=== PATIENT | female | born 1975 | race American Indian/Alaskan Native ===

== ENCOUNTER 2016-11-29 08:31 | Outpatient (CLI) | payer BC ==
--- NOTE | 2016-11-29 09:22 | Mammography Report ---
Bilateral mammogram: Compared to 10/30/15. CAD study utilized. Findings: Predominance adipose tissue bilaterally. No mass or microcalcification. Benign axillary nodes. Impression: Benign findings. Annual followup recommended. BI-RADS CATEGORY: 2 = Benign ACR BI-RADS MAMMOGRAPHIC CODES: 0 = Needs additional imaging evaluation; 1 = Negative; 2 = Benign; 3 = Probably benign; 4 = Suspicious; 5 = Malignant; 6 = Known biopsy-proven malignancy COMMENT: 1. Dense breast tissue, i.e., adenosis, fibrocystic changes, etc., may obscure an underlying neoplasm. 2. Approximately 10% of cancers are not detected with mammography. 3. A negative mammography report should not delay biopsy if a clinically suspicious mass is present. COMMENT: Patient follow-up letters are generated in [employer].
== END 2016-11-29 08:32 | disposition home or self-care (01) ==
LOC: MAMMO 08:31
PROVIDERS: ATTEND Family Medicine
DX: Z12.31 Encounter for screening mammogram for malignant neoplasm of breast (principal)
CPT/HCPCS: 77067; G0202

== ENCOUNTER 2016-12-20 08:34 | Outpatient (CLI) | payer BC ==
[2016-12-20 07:48] LABS: Eosinophils % (Auto) 0.8 % (0.0-4.3); Hematocrit 33.1 % (30.3-42.9); Hemoglobin 10.6 gm/dl (10.1-14.3); Mean Corpuscular HGB Conc 32 % (30-34); Mean Corpuscular Hemoglobin 27 pg (28-32); Mean Corpuscular Volume 84 fl (79-97); Platelet Count 333 K/mm3 (140-440); Red Blood Count 3.94 M/mm3 (3.65-5.03); Red Cell Distribution Width 15.4 % (13.2-15.2); White Blood Count 5.2 K/mm3 (4.5-11.0)
[2016-12-20 07:56] LABS: Alanine Aminotransferase 12 units/L (7-56); Albumin/Globulin Ratio 1.2 %; Anion Gap 13 mmol/L; BUN/Creatinine Ratio 15; Blood Urea Nitrogen 15 mg/dL (7-17); Calcium 8.8 mg/dL (8.4-10.2); Carbon Dioxide 26 mmol/L (22-30); Chloride 105.9 mmol/L (98-107); Cholesterol 216 mg/dL (50-199); Glucose 89 mg/dL (65-100); HDL Cholesterol 59 mg/dL (40-59); LDL Cholesterol,Direct 145 mg/dL (50-130); Sodium 141 mmol/L (137-145); Total Protein 7.4 g/dL (6.3-8.2); Triglycerides 61 mg/dL (2-149)
[2016-12-20 10:07] LABS: Alkaline Phosphatase 34 units/L (35-129)
--- NOTE | 2016-12-20 13:02 | Cat Scan Report ---
CT ABDOMEN AND PELVIS WITH CONTRAST INDICATION: Chronic LLQ pain. COMPARISON: None similar. FINDINGS: Abdomen and pelvis CT performed following oral contrast and intravenous administration of 100 cc of Omnipaque 300. LUNG BASES: Slight air filled distal esophageal prominence. Right hemidiaphragm slightly elevated. ABDOMEN: Approximately 1.3 cm peripherally calcified gallstone. Liver visually slightly hypodense. Otherwise unremarkable liver, spleen, pancreas, adrenals, aorta, IVC, kidneys and opacified bowel. Normal appendix. Mild colonic stool. An opacified nonobstructive small bowel loop also noted subjacent to the umbilicus, axial image 55, series 2. No ascites or significant adenopathy. PELVIS: Uterus, adnexa/ovaries demonstrate physiologic appearance as also the rectosigmoid and suboptimally distended urinary bladder. No free fluid or significant adenopathy. Mild sclerosis along iliac aspect of the SI joints, left more than right. Slight degenerative spurring. CONCLUSION: No acute CT abnormality with cholelithiasis and few other incidental findings, as above. Thank you for the opportunity to participate in this patient's care.
[2016-12-22 13:49] LABS: Vitamin D, 25-OH, Total 34 ng/mL (30-100)
== END 2016-12-20 08:35 | disposition home or self-care (01) ==
LOC: CT 08:34
PROVIDERS: ATTEND Family Medicine
DX: Z51.81 Encounter for therapeutic drug level monitoring (principal); D35.2 Benign neoplasm of pituitary gland; I10 Essential (primary) hypertension; D50.8 Other iron deficiency anemias; E78.2 Mixed hyperlipidemia; E22.1 Hyperprolactinemia; E66.09 Other obesity due to excess calories; E55.9 Vitamin D deficiency, unspecified; J98.6 Disorders of diaphragm; N32.89 Other specified disorders of bladder; Z79.899 Other long term (current) drug therapy
CPT/HCPCS: 36415; 74177; 80053; 80061; 82306; 82607; 82728; 83036; 83550; 84146; 84443; 85025; Q9967

== ENCOUNTER 2017-03-08 05:58 | Day surgery (SDC) | payer BC ==
[2017-03-07 11:14] LABS: Basophils % (Auto) 0.8 % (0.0-1.8); Hematocrit 31.1 % (30.3-42.9); Lymphocytes # (Auto) 1.7 K/mm3 (1.2-5.4); Lymphocytes % (Auto) 34.7 % (13.4-35.0); Mean Corpuscular HGB Conc 32 % (30-34); Mean Corpuscular Hemoglobin 27 pg (28-32); Mean Corpuscular Volume 83 fl (79-97); Monocytes # (Auto) 0.5 K/mm3 (0.0-0.8); Monocytes % (Auto) 10.7 % (0.0-7.3); Platelet Count 355 K/mm3 (140-440); Red Blood Count 3.74 M/mm3 (3.65-5.03); Red Cell Distribution Width 15.6 % (13.2-15.2)
[2017-03-07 11:32] LABS: BUN/Creatinine Ratio 20; Blood Urea Nitrogen 16 mg/dL (7-17); Calcium 8.6 mg/dL (8.4-10.2); Hemolysis Index 3
--- NOTE | 2017-03-07 17:45 | History and Physical Report ---
History of Present Illness Date of examination: 03/04/17 Chief complaint: Abnormal uterine bleeding, endometrial mass History of present illness: Past History : 3 Term Births: 2 Living Children: 2 Para: 2 Aborta: 1 Spont. Ab: 1 # 1 Delivery date: 06/10/2005 Weeks Gestation: 39 labor: no Delivery type: Anesthesia type: epidural Delivery location: [place] Sex: Female weight: 6-4 # 2 Delivery date: 2008 Delivery type: SAB Comments: no d&c # 3 Delivery date: 03/21/2011 Weeks Gestation: 37+2 Delivery type: Vaginal Anesthesia type: epidural Delivery location: [facility] Infant Sex: male weight: 4.56 Comments: CHTN, abnml screening [employer] History Uterine Surgery (not C/S): negative Operations: positive, tonsillectomy, inguinal hernia repair (R) Anesthesia Complications: negative Abnormal PAP: negative Uterine Anomaly: negative [place] Exposure: negative Infertility: negative Infection History TB exposure: yes Personal hx. of genital herpes: no Partner hx. of genital herpes: no Hx of STD: None Active Medications (reviewed today): IBUPROFEN 800 MG ORAL TABLET (IBUPROFEN) 1 po TID (PRN) OXYCODONE-ACETAMINOPHEN 5-325 MG ORAL TABLET (OXYCODONE-ACETAMINOPHEN) 1-2po q6h FENOFIBRATE 54 MG ORAL TABLET (FENOFIBRATE) VALSARTAN-HYDROCHLOROTHIAZIDE TABLET (VALSARTAN-HYDROCHLOROTHIAZIDE TABS) VITAMIN D 1000 UNIT ORAL TABLET (CHOLECALCIFEROL) Current Allergies (reviewed today): * DOSTINEX (Critical) * SARDINES (Critical) Past Medical History: Reviewed history from 06/16/2009 and no changes required: hyperprolactinemia Hyperlipidemia Hypertension Insulin resistance Past Surgical History: Reviewed history from 06/21/2016 and no changes required: positive, tonsillectomy, inguinal hernia repair (R) Family History Summary: Other family member - Has No Family History of Uterine Cancer - Entered On: 2017 Other family member - Has No Family History of Stomach Cancer - Entered On: 2017 Other family member - Has No Family History of Small Bowel Cancer - Entered On: 03/07/2017 Other family member - Has No Family History of Pancreatic Cancer - Entered On: Other family member - Has No Family History of Kidney/Urinary Tract Cancer - Entered On: 03/07/2017 Other family member - Has No Family History of DVT/PE on OCP - Entered On: 2017 Other family member - Has No Family History of Colon Cancer - Entered On: 2017 Other family member - Has No Family History of Brain Cancer - Entered On: 2017 Other family member - Has No Family History of Biliary Tract Cancer - Entered On : 03/07/2017 Aunt - Has Family History of Ovarian Cancer - paterna, menopause - Entered On: Aunt - Has Family History Breast Cancer - Entered On: 03/07/2017 General Comments - FH: No Family History of Colon Cancer No Family History of Ovarian Cancer No Family History of DVT/PE on OCP Family History Breast Cancer Paternal aunt Menopause Social History: Reviewed history from 06/21/2016 and no changes required: Patient is Smoking History: Patient has never smoked. Risk Factors: PAP Smear History: Date of Last PAP Smear: 06/21/2016 Previous Tobacco Use: Signed On - 06/21/2016 Smoked Tobacco Use: Never smoker Counseled to quit/cut down: yes Drug use: no Previous Alcohol Use: Signed On - 06/21/2016 Alcohol use: no Exercise: yes Times per week: 3 Seatbelt use: 100 % Dietary Counseling: pn yes PAP Smear History: Date of Last PAP Smear: 06/21/2016 Review of Systems General Denies fever, chills, sweats, anorexia, fatigue, weakness, malaise, weight loss and sleep disorder. Complains of abnormal vaginal bleeding. Denies vaginal discharge, incontinence, dysuria, hematuria, urinary frequency, amenorrhea, menorrhagia, pelvic pain, genital sores, decreased libido , painful periods, painful sex, urinary urgency, hot flashes, vaginal dryness, vaginal itching and vaginal odor. CV Denies chest pains, palpitations, syncope, dyspnea on exertion, orthopnea, PND and peripheral edema. Resp Denies cough, dyspnea at rest, excessive sputum, hemoptysis, wheezing and pleurisy. GI Denies nausea, vomiting, diarrhea, constipation, change in bowel habits, abdominal pain, melena, hematochezia, jaundice, gas/bloating, indigestion/ heartburn, dysphagia and odynophagia. Endo Denies cold intolerance, heat intolerance, polydipsia, polyphagia, polyuria and unusual weight change. Breast Denies left breast lump, right breast lump, nipple discharge, bloody discharge from nipple, breast pain, abnormal mammogram and breast enlargement. MS Denies back pain, joint pain, joint swelling, muscle cramps, muscle weakness, stiffness, arthritis, sciatica, restless legs, leg pain at night and leg pain with exertion. Derm Denies rash, itching, dryness and suspicious lesions. Neuro Denies paralysis, paresthesias, headache, seizures, tremors, vertigo, transient blindness, frequent falls, frequent headaches and difficulty walking. Psych Denies depression, anxiety, irritability and mood swings. Eyes Denies blurring, diplopia, irritation, discharge, vision loss, eye pain and photophobia. ENT Denies earache, ear discharge, tinnitus, decreased hearing, nasal congestion, nosebleeds, sore throat and hoarseness. Allergy Denies urticaria, allergic rash, hay fever and recurrent infections. Heme Denies abnormal bruising, bleeding and enlarged lymph nodes. Physical Exam Other Exams Abdomen: soft, non-tender, no masses, bowel sounds normal Extremities: normal alignment, no joint enlargement, crepitus, masses or tenderness; normal tone and strength Genitourinary Exam Vagina: very small amount of white d/c present. no odor Cervix: normal appearance, no lesions, no discharge Uterus: normal position, midline, mobile Adnexa: no masses or tenderness PHYSICAL EXAM Chest: respiratory effort normal, clear to auscultation CV: regular, normal S1-S2, no murmur, no rub, no gallop Abdomen: soft, non-tender, no masses, bowel sounds normal Extremities: normal alignment, no joint enlargement, crepitus, masses or tenderness; normal tone and strength [employer] Exams Vulva/Vagina: very small amount of white d/c present. no odor Cervix: normal appearance, no lesions, no discharge Uterus: normal position, midline, mobile Adnexae: no masses or tenderness Impression & Recommendations: Problem # 1: Excessive and frequent menstruation with regular cycle (ICD-626.2 ) (GXZ02-C58.0) Diagnosis explained to patient . Questions answered. Discussed with patient various medical and surgical therapies common for treatment: Hormonal/medical therapy,endometrial ablation or hysterectomy. She desires to proceed with excision of endomterial mass and endometrial ablation. She was informed she may not be able to get or maintain a after ablation however endometrial ablation is not a form of contraception. Consent reviewed and signed . Possible laparoscopy or laparotomy explained to patient. The risks and alternatives for this surgery were reviewed with the patient. She was informed of possible bleeding, infection, injury to bowel, bladder, ureters or other adjacent organs. The patient was instructed/informed the following: The normal length of hospital stay for this procedure. Nothing to eat or drink after midnight the evening prior to surgery. Pre-op instruction sheets given. Wound care instructions given. Infection precautions reviewed, patient to call for any signs or symptoms of infection. The usual discomforts associated with this procedure were detailed. Proper use of pain medicines was reviewed. Patient was given ample opportunity to have all her questions answered before signing informed consent. H&P dictated. Problem # 2: Endometrial mass (ICD-236.0) ([id number]-J45.0) Medications Added to Medication List This Visit: 1) Ibuprofen 800 Mg Oral Tablet (Ibuprofen) .... 1 po tid (prn) 2) Oxycodone-acetaminophen 5-325 Mg Oral Tablet (Oxycodone-acetaminophen) .... 1-2po q6h Prescriptions: IBUPROFEN 800 MG ORAL TABLET (IBUPROFEN) 1 po TID (PRN) #30 x 0 Entered and Authorized by: Sammi Pulliam MD Method used: Print then Give to Patient RxID: [id number] OXYCODONE-ACETAMINOPHEN 5-325 MG ORAL TABLET (OXYCODONE-ACETAMINOPHEN) 1-2po q6h #10 Tablet x 0 Entered and Authorized by: Sammi Pulliam MD Method used: Print then Give to Patient RxID: [id number] IBUPROFEN 800 MG ORAL TABLET (IBUPROFEN) 1 po TID (PRN) #30 x 0 Entered and Authorized by: Sammi Pulliam MD Method used: Print then Give to Patient RxID: [id number] OXYCODONE-ACETAMINOPHEN 5-325 MG ORAL TABLET (OXYCODONE-ACETAMINOPHEN) 1-2po q6h #10 Tablet x 0 Entered and Authorized by: Sammi Pulliam MD Method used: Print then Give to Patient RxID: [id number] Medications and Allergies Allergies Allergy/AdvReac Type Severity Reaction Status Date / Time cabergoline [From Dostinex] Allergy Severe Itching Verified 03/02/17 15:12 Tearlhy-Nxn-Tyq Reductase AdvReac joint pain Verified 03/02/17 15:12 Inhibitor Home Medications Medication Instructions Recorded Confirmed Last Taken Type Fenofibrate [Lipofen] 54 mg PO QDAY 03/02/17 03/02/17 Unknown History Valsartan/Hydrochlorothiazide 1 each PO DAILY 03/02/17 03/02/17 Unknown History [Valsartan-Hctz 320-12.5 mg Tab] Vitamin B Complex [Super B-50 50,000 unit PO QWEEK 03/02/17 03/02/17 Unknown History Complex] Active Meds: Active Medications Cefazolin Sodium (Ancef/Sterile Water 2 Gm/20 Ml) 2 gm in 20 mls @ 80 mls/hr IV PREOP NR PRN Reason: Protocol Exam Vital Signs Temp Pulse Resp BP 97.4 F L 76 16 118/82 03/07/17 10:50 03/07/17 10:50 03/07/17 10:50 03/07/17 10:50 Results - Labs 03/07/17 10:50 03/07/17 10:50 Abnormal lab results 03/07/17 Range/Units 10:50 Hgb 10.0 L (10.1-14.3) gm/dl MCH 27 L (28-32) pg RDW 15.6 H (13.2-15.2) % Gillespie % (Auto) 10.7 H (0.0-7.3) % Diabetes panel 03/07/17 Range/Units 10:50 Sodium 140 (137-145) mmol/L Potassium 4.1 (3.6-5.0) mmol/L Chloride 104.1 (98-107) mmol/L Carbon Dioxide 26 (22-30) mmol/L BUN 16 (7-17) mg/dL Creatinine 0.8 (0.7-1.2) mg/dL Glucose 91 (65-100) mg/dL Calcium 8.6 (8.4-10.2) mg/dL Calcium panel 03/07/17 Range/Units 10:50 Calcium 8.6 (8.4-10.2) mg/dL Pituitary panel 03/07/17 Range/Units 10:50 Sodium 140 (137-145) mmol/L Potassium 4.1 (3.6-5.0) mmol/L Chloride 104.1 (98-107) mmol/L Carbon Dioxide 26 (22-30) mmol/L BUN 16 (7-17) mg/dL Creatinine 0.8 (0.7-1.2) mg/dL Glucose 91 (65-100) mg/dL Calcium 8.6 (8.4-10.2) mg/dL Adrenal panel 03/07/17 Range/Units 10:50 Sodium 140 (137-145) mmol/L Potassium 4.1 (3.6-5.0) mmol/L Chloride 104.1 (98-107) mmol/L Carbon Dioxide 26 (22-30) mmol/L BUN 16 (7-17) mg/dL Creatinine 0.8 (0.7-1.2) mg/dL Glucose 91 (65-100) mg/dL Calcium 8.6 (8.4-10.2) mg/dL Assessment and Plan - Patient Problems (1) Excessive and frequent menstruation with irregular cycle Status: Acute (2) Endometrial mass Status: Acute
[~2017-03-08 05:58] MED LIST: ANCEF/STERILE WATER 2 GM/20 ML 2 GM/20 ML SYRINGE IV NR
[2017-03-08] MEDS ORDERED: NACL BACTERIOSTATIC INFILTRATI ONE (06:33)
[2017-03-08] MEDS ORDERED: DILAUDID ONE (07:19)
[2017-03-08] MEDS ORDERED: DIPRIVAN 10 MG/ML IV ONE (07:19)
[2017-03-08] MEDS ORDERED: ZOFRAN IV PRN (07:22)
[2017-03-08] MEDS ORDERED: PERCOCET 5/325 PO PRN (07:22)
[2017-03-08] MEDS ORDERED: MORPHINE IV PRN (07:22)
--- NOTE | 2017-03-08 07:24 | Anesthesia Consultation ---
Anesthesia Consult and Med Hx Date of service: 03/08/17 - Airway Anesthetic Teeth Evaluation: Good ROM Head & Neck: Adequate Mental/Hyoid Distance: Adequate Mallampati Class: Class II Intubation Access Assessment: Probably Good - Pulmonary Exam CTA: Yes - Cardiac Exam Cardiac Exam: RRR - Pre-Operative Health Status ASA Pre-Surgery Classification: ASA2 Proposed Anesthetic Plan: General - Pulmonary Hx Smoking: No Hx Asthma: No Hx Sleep Apnea: No - Cardiovascular System Hx Hypertension: Yes - Central Nervous System Hx Psychiatric Problems: No - Other Systems Hx Alcohol Use: Yes (occas) Hx Cancer: No Hx Obesity: Yes - Additional Comments Anesthesia Medical History Comments: Hyperprolactenemia, hyperlipidemia.
--- NOTE | 2017-03-08 07:24 | Anesthesia Day of Surgery ---
Anesthesia Day of Surgery - Day of Surgery Patient Examined: Yes Patient H&P Reviewed: Yes Patient is NPO: Yes
[2017-03-08] MEDS ORDERED: NACL 0.9% IR ONE ×2 (07:30)
[2017-03-08] MEDS ORDERED: DECADRON ONE (07:44)
[2017-03-08] MEDS ORDERED: ROBINUL ONE (07:45)
[2017-03-08] MEDS ORDERED: XYLOCAINE MPF 2% ONE (07:45)
[2017-03-08] MEDS ORDERED: ZOFRAN ONE (07:45)
[2017-03-08] MEDS ORDERED: SILVER NITRATE TP ONE (07:48)
[2017-03-08] MEDS ORDERED: TORADOL ONE (07:49)
[2017-03-08] MEDS ORDERED: NEO SYNEPHRINE/NS Syringe(OR USE) IV ONE (07:55)
[2017-03-08] MEDS ORDERED: PROAIR IH ONE (07:55)
[2017-03-08] MEDS ORDERED: VERSED IV NR (08:00)
[2017-03-08] MEDS ORDERED: NACL 0.9% 1000 ML 1,000 ML IV SCH (08:00)
[2017-03-08] MEDS ORDERED: PEPCID IV NR (08:00)
[2017-03-08] MEDS ORDERED: NACL 0.9% 1000 ML 1,000 ML ONE (08:05)
[2017-03-08] MEDS ORDERED: ePHEDrine SULFATE ONE (08:11)
--- NOTE | 2017-03-08 08:38 | Post Anesthesia Evaluation ---
- Post Anesthesia Evaluation Patient Participated: Yes Airway Patent: Yes Stable Respiratory Function: Yes Nausea/Vomiting: No Temp > 96.8F: Yes Pain Manageable: Yes Adequeate Hydration: Yes Anesthesia Complications: No Block Receding Appropriately: Not Applicable Patient on Ventilator: No
--- NOTE | 2017-03-08 09:09 | Discharge Summary ---
Providers - Providers Date of discharge: 03/08/17 Attending physician: DAGMAR FISH Primary care physician: BALDEV STODDARD Hospitalization Condition: Good Procedures: Cervical dilation Hysteroscopic excision of endometrial mass Uterine curettage Endometrial ablation Hospital course: Unremarkable Disposition: DC-01 TO HOME OR SELFCARE - Discharge Diagnoses (1) Excessive and frequent menstruation with irregular cycle Status: Resolved (2) Endometrial mass Status: Resolved Core Measure Documentation - Palliative Care Palliative Care/ Comfort Measures: Not Applicable - Core Measures Any of the following diagnoses?: none Exam - Constitutional Vitals: Temp Pulse Resp BP Pulse Ox 97.8 F 91 H 16 117/76 100 03/08/17 08:28 03/08/17 09:01 03/08/17 09:01 03/08/17 09:01 03/08/17 09:01 General appearance: Present: no acute distress - Respiratory Respiratory effort: normal - Cardiovascular Rhythm: regular - Abdominal General gastrointestinal: Present: non-tender Female genitourinary: Present: deferred - Psychiatric Psychiatric: appropriate mood/affect Plan Activity: other (no sex) Weight Bearing Status: Full Weight Bearing Diet: regular Special Instructions: no heavy lifting (>25# x1week) Follow up with: BALDEV STODDARD MD [Primary Care Provider] - 7 Days DAGMAR FISH MD [Staff Physician] - (As scheduled)
--- NOTE | 2017-03-08 09:16 | Operative Report ---
Operative Report Operative Report: Date: 03/08/2017 Preoperative diagnosis: 1. Menorrhagia 2. Endometrial mass Postoperative diagnosis: 1. Menorrhagia 2. Endometrial mass Procedure: 1. Cervical dilation 2. Hysteroscopic excision of endometrial mass 3. Uterine curettage 4. Endometrial ablation Surgeon: Sammi Pulliam MD Shuttlecock Assembler: [] Anesthesiologist: Graeme Diaz MD Anesthesia: Gen. EBL: Minimal Findings: Uterine cavity length: 5 cm Uterine cavity width: 4.4 cm Ablation wattage: 121 W Duration: 78 seconds Distention medium: Normal saline Fluid deficit: 285 mL Procedure: After risks, benefits, complications, consequences and alternatives for this procedure were explained, and patient voiced her understanding and her desire to proceed, she is taken to the OR and placed in the supine position. General anesthesia was induced. She was placed in the dorsolithotomy position. She was then prepped and draped in usual sterile fashion. Timeout was performed. A Garcia catheter was introduced into the bladder a operative speculum was introduced was introduced into the vagina. The anterior lip of the cervix was grasped with single-tooth tenaculum and the uterus was sounded to 9 cm. The cervix was progressively dilated to allow the operative hysteroscope. A small endometrial mass extending from the right lateral lower uterine segment was noted otherwise the cavity appeared to be grossly normal. Using the Myosure device hysteroscopic excision was performed. Uterine curettage was then performed. Then the uterine cavity length was determined. The NovaSure device was then set to 5 cm. The array was deployed to ensure adequate release. The device was introduced into the uterus and the array was released.. Uterine cavity width was determined to be 4.4 cm. Uterine integrity was confirmed. Ablation was performed. The procedure was completed at 78 seconds. The device was removed. The hysteroscope was reintroduced. Ablation of all surfaces was noted. The procedure was ended. The speculum and the tenaculum were removed. Hemostasis was noted. The Garcia catheter was removed. No bleeding from the tenaculum site was noted. Clear yellow urine was draining into the Garcia catheter at the end of the procedure. Patient tolerated procedure well and taken to recovery room in stable condition
[2017-03-08 09:30] VITALS: BP 112/75
== END 2017-03-08 09:50 | disposition home or self-care (01) ==
LOC: OR 05:58
PROVIDERS: ATTEND Obstetrics & Gynecology
DX: N92.0 Excessive and frequent menstruation with regular cycle (principal); N84.0 Polyp of corpus uteri; N85.01 Benign endometrial hyperplasia; I10 Essential (primary) hypertension; E78.5 Hyperlipidemia, unspecified; E66.9 Obesity, unspecified; Z68.32 Body mass index [BMI] 32.0-32.9, adult; Z79.899 Other long term (current) drug therapy; Z88.5 Allergy status to narcotic agent; Z98.890 Other specified postprocedural states; Z88.8 Allergy status to other drugs, medicaments and biological substances
CPT/HCPCS: 36415; 58563; 80048; 81025; 85025; 86850; 86900; 86901; 88305; A4217; C1782; J0690; J1100; J1170; J1885; J2250; J2370; J2405; J2704; J7030

== ENCOUNTER 2017-06-23 08:18 | Outpatient (CLI) | payer BC ==
[2017-06-23 08:31] LABS: Basophils % (Auto) 0.8 % (0.0-1.8); Hematocrit 36.9 % (30.3-42.9); Hemoglobin 12.2 gm/dl (10.1-14.3); Lymphocytes # (Auto) 1.5 K/mm3 (1.2-5.4); Lymphocytes % (Auto) 33.9 % (13.4-35.0); Mean Corpuscular HGB Conc 33 % (30-34); Mean Corpuscular Hemoglobin 28 pg (28-32); Mean Corpuscular Volume 83 fl (79-97); Monocytes # (Auto) 0.5 K/mm3 (0.0-0.8); Monocytes % (Auto) 12.2 % (0.0-7.3); Platelet Count 338 K/mm3 (140-440); Red Blood Count 4.44 M/mm3 (3.65-5.03); Red Cell Distribution Width 16.2 % (13.2-15.2)
[2017-06-23 09:03] LABS: Alanine Aminotransferase 11 units/L (7-56); Albumin 4.1 g/dL (3.9-5); BUN/Creatinine Ratio 14; Blood Urea Nitrogen 11 mg/dL (7-17); Calcium 8.8 mg/dL (8.4-10.2); HDL Cholesterol 56 mg/dL (40-59); Hemolysis Index 19; LDL Cholesterol,Direct 151 mg/dL (50-130)
[2017-06-23 09:09] LABS: Free T4 (Free Thyroxine) 1.06 ng/dL (0.76-1.46)
== END 2017-06-23 08:19 | disposition home or self-care (01) ==
LOC: LAB 08:18
PROVIDERS: ATTEND Family Medicine
DX: D49.7 Neoplasm of unspecified behavior of endocrine glands and other parts of nervous system (principal); I10 Essential (primary) hypertension; E78.2 Mixed hyperlipidemia; E55.9 Vitamin D deficiency, unspecified; E22.1 Hyperprolactinemia; Z68.32 Body mass index [BMI] 32.0-32.9, adult; Z79.899 Other long term (current) drug therapy
CPT/HCPCS: 36415; 80053; 80061; 82306; 83036; 84146; 84439; 84443; 85025; 87806

== ENCOUNTER 2018-03-08 07:12 | Outpatient (CLI) | payer BC ==
[2018-03-08 15:23] LABS: Blood Urea Nitrogen 9 mg/dL (7-17)
--- NOTE | 2018-03-08 17:46 | Cat Scan Report ---
FINAL REPORT EXAM: CT ABDOMEN PELVIS W CON HISTORY: OVARIAN MASS, LOWER LEFT QUADRANT PAIN TECHNIQUE: CT examination of the ABDOMEN after IV contrast CT examination of the PELVIS after IV contrast PRIORS: None. FINDINGS: Clear lung bases. No acute fracture. Normal-appearing liver, adrenals, pancreas, and spleen. Calcified gallstones in gallbladder lumen. No CT evidence of other biliary pathology. Intact normal caliber abdominal aorta and IVC. Nonspecific, smoothly marginated, simple appearing, low density bilateral renal lesions are statistic ally most likely cysts. They are too small to characterize. Otherwise normal-appearing kidneys and vi sible ureteral segments. Pelvic ureters obscured by adjacent anatomy. Small fat containing umbilical hernia. No inguinal hernia. No retroperitoneal adenopathy. No evidence of mesenteric mass. Normal-appearing stomach and duodenum. No small bowel distention in the abdomen and pelvis. No pelvic free fluid. Normal-appearing urinary bladder, uterus, and left adnexal. Normal-appearing re ctum and sigmoid colon. Nonspecific multi cystic change in the right adnexal region may be an enlarged cystic right ovary. No evidence of associated calcification. Approximate size of what appears to be the largest cyst is 3.3 cm. Overall right adnexal lesion size is approximately 5.6 cm. No gross ascites, free air, or colonic distention. Normal-appearing cecum, terminal ileum, and append ix. IMPRESSION: Nonspecific multi cystic enlargement of the right adnexa may be multiple right ovarian follicles. Con lead database administrator also hydrosalpinx or right tubo-ovarian abscess. Differential includes multi cystic ovarian erin plasm. Cholelithiasis Small fat containing umbilical hernia
== END 2018-03-08 07:13 | disposition home or self-care (01) ==
LOC: LAB 07:12
PROVIDERS: ATTEND Obstetrics & Gynecology
DX: K80.20 Calculus of gallbladder without cholecystitis without obstruction (principal); K42.9 Umbilical hernia without obstruction or gangrene; N83.209 Unspecified ovarian cyst, unspecified side; E78.00 Pure hypercholesterolemia, unspecified; I10 Essential (primary) hypertension; E66.9 Obesity, unspecified; Z88.8 Allergy status to other drugs, medicaments and biological substances; Z91.040 Latex allergy status; Z91.013 Allergy to seafood; Z90.89 Acquired absence of other organs
CPT/HCPCS: 36415; 74177; 82106; 82565; 83615; 84520; 84702; 86304; Q9967

== ENCOUNTER 2018-06-21 08:25 | Outpatient (CLI) | payer BC ==
[2018-06-21 12:50] LABS: Basophils % (Auto) 0.6 % (0.0-1.8); Eosinophils % (Auto) 0.9 % (0.0-4.3); Hematocrit 37.6 % (30.3-42.9); Hemoglobin 12.5 gm/dl (10.1-14.3); Lymphocytes # (Auto) 1.9 K/mm3 (1.2-5.4); Lymphocytes % (Auto) 36.6 % (13.4-35.0); Mean Corpuscular HGB Conc 33 % (30-34); Mean Corpuscular Volume 89 fl (79-97); Monocytes # (Auto) 0.5 K/mm3 (0.0-0.8); Monocytes % (Auto) 10.3 % (0.0-7.3); Platelet Count 303 K/mm3 (140-440); Red Blood Count 4.21 M/mm3 (3.65-5.03); Red Cell Distribution Width 13.9 % (13.2-15.2)
[2018-06-21 13:13] LABS: % Iron Saturation 30.98 %; Alanine Aminotransferase 15 units/L (7-56); BUN/Creatinine Ratio 12; Blood Urea Nitrogen 12 mg/dL (7-17); Calcium 8.9 mg/dL (8.4-10.2); HDL Cholesterol 53 mg/dL (40-59); Hemolysis Index 3; Iron 92 ug/dL (37-170); LDL Cholesterol,Direct 124 mg/dL (50-130); Total Iron Binding Capacity 297 mcg/dL (250-450)
[2018-06-28 06:23] LABS: Vitamin D, 25-OH, D2 SEE SCANNED RESULT
== END 2018-06-21 08:26 | disposition home or self-care (01) ==
LOC: LAB 08:25
PROVIDERS: ATTEND Family Medicine
DX: Z51.81 Encounter for therapeutic drug level monitoring (principal); D50.8 Other iron deficiency anemias; E66.09 Other obesity due to excess calories; E78.2 Mixed hyperlipidemia; E32.1 Abscess of thymus; D49.7 Neoplasm of unspecified behavior of endocrine glands and other parts of nervous system; E55.9 Vitamin D deficiency, unspecified; E22.1 Hyperprolactinemia; R10.32 Left lower quadrant pain
CPT/HCPCS: 36415; 80053; 80061; 82306; 82728; 83036; 83550; 84146; 84443; 85025

== ENCOUNTER 2018-07-07 07:19 | Outpatient (CLI) | payer BC ==
[2018-07-07] MEDS ORDERED: KINEVAC IV ONE (08:42)
--- NOTE | 2018-07-07 12:08 | Nuclear Medicine Report ---
HIDA INDICATION: Gallstone. LLQ abdominal pain for 1-1/2 years. COMPARISON: 03/08/2018 CT findings. FINDINGS: Dynamic right upper quadrant imaging performed in the anterior projection over 60 minutes following uneventful intravenous administration of 5 mCi of Technetium 99m Choletec. Prompt and homogenous hepatic radiotracer uptake with subsequent washout seen with gallbladder activity conclusively noted at 20 minutes and bowel activity seen at 15 minutes. Subsequently, 1.7 mcg of cholecystokinin infused intravenously over a period of 3 minutes with patient reporting experiencing different pain, cramping. The calculated ejection fraction is 28% (normal greater than 35%). CONCLUSION: Biliary dyskinesia with gallbladder ejection fraction of 28%, and patient reporting experiencing cramping and pain, different in nature from previous. Please also correlate technically. Thank you for the opportunity to participate in this patient's care.
== END 2018-07-07 07:20 | disposition home or self-care (01) ==
LOC: NM 07:19
PROVIDERS: ATTEND Internal Medicine Gastroenterology
DX: K82.8 Other specified diseases of gallbladder (principal); E78.00 Pure hypercholesterolemia, unspecified; I10 Essential (primary) hypertension; Z90.89 Acquired absence of other organs
CPT/HCPCS: 78227; A9537; J2805

== ENCOUNTER 2018-08-02 08:43 | Outpatient (CLI) | payer BC ==
[2018-08-03] MEDS ORDERED: WATER FOR IRRIG STERILE ONE (07:35)
[2018-08-03] MEDS ORDERED: WATER FOR IRRIG STERILE IR ONE (07:35)
--- NOTE | 2018-08-03 20:59 | Ultrasound Report ---
PROCEDURE: US PELVIC COMPLETE TECHNIQUE: Real-time transabdominal sonography in multiple planes of pelvis was performed with image documentation. HISTORY: LLQ PAIN; OVARIAN MASS COMPARISONS: None . FINDINGS: UTERUS Size: 9.9 x 6.4 x 5.8 cm. Endometrial thickness: 6.8 mm. Orientation: anteverted. Cervix: Normal. Fibroids/masses: There are 3 focal lesions identified in the uterus which are predominantly hypoechoi c with ill-defined margins largest measuring 3 cm in diameter. RIGHT Ovary: Not well-visualized LEFT Ovary: 4.1 x 2.3 x 2.1 cm. Appearance: Normal echotexture. Pelvic fluid: None. Other: None. IMPRESSION: Multiple focal lesions in the uterus largest measuring 3 cm consistent with fibroids.. This document is electronically signed by Jerod Lam MD., August 03 2018 08:57:13 PM ET
--- NOTE | 2018-08-04 08:16 | Ultrasound Report ---
PROCEDURE: US TRANSVAGINAL TECHNIQUE: Transvaginal grayscale and color Doppler pelvic ultrasound HISTORY: LLQ PAIN; OVARIAN MASS COMPARISONS: CT 03/08/2018 normal ultrasound 02/22/2018 FINDINGS: Anteverted uterus containing multiple intramural hypoechoic fibroids measuring up to 3 cm in greatest dimension. No endometrial distortion. The endometrium is homogeneous and measures approximately 7 mm in thickness. No significant free fluid in the pelvis. The right ovary measures 5.8 x 4.3 x 4.8 cm and contains sev eral cystic structures, the largest of which measures 4.6 x 2.5 x 3 cm with a reticular pattern of in ternal echoes. No hyperemia on color Doppler evaluation. The left ovary measures 3.2 x 2.5 x 2.5 cm and demonstrates normal echotexture and color Doppler eval uation. A functional cyst measuring up to 1.9 cm is noted. IMPRESSION: No findings to correspond to left lower quadrant pain. Right ovarian hemorrhagic cyst versus endometrioma measuring up to 4.6 cm. Follow-up ultrasound in 6 or 10 weeks is suggested. Fibroid uterus. This document is electronically signed by Amadou Tovar MD., August 04 2018 08:14:23 AM ET
== END 2018-08-02 08:44 | disposition home or self-care (01) ==
LOC: US 08:43
PROVIDERS: ATTEND Obstetrics & Gynecology
DX: D25.1 Intramural leiomyoma of uterus (principal); E78.00 Pure hypercholesterolemia, unspecified; I10 Essential (primary) hypertension; E66.9 Obesity, unspecified; Z90.89 Acquired absence of other organs
CPT/HCPCS: 76830; 76856

== ENCOUNTER 2018-08-03 06:15 | Day surgery (SDC) | payer BC ==
[2018-08-03] MEDS ORDERED: VERSED ONE (07:48)
[2018-08-03] MEDS ORDERED: NACL 0.9% 100 ML ONE (07:48)
[2018-08-03] MEDS ORDERED: XYLOCAINE 2% INFILTRATI ONE (07:48)
[2018-08-03] MEDS ORDERED: DIPRIVAN 10 MG/ML IV ONE ×2 (07:48)
[2018-08-03] MEDS ORDERED: NACL 0.9% 1000 ML 1,000 ML IV SCH (08:00)
--- NOTE | 2018-08-03 08:12 | Short Stay Summary ---
Short Stay Documentation - Allergies and Medications Current Medications: Allergies cabergoline [From Dostinex] Allergy (Severe, Verified 03/08/17 06:39) Hives Wbskdjo-Lbz-Ywv Reductase Inhibitor Adverse Reaction (Verified 03/02/17 15:12) joint pain POWDER IN GLOVES Allergy (Uncoded 03/08/17 06:48) Rash sardines Allergy (Uncoded 03/08/17 06:39) Hives Home Medications Medication Instructions Recorded Confirmed Last Taken Type Valsartan/Hydrochlorothiazide 12.5 - 40 mg PO DAILY 03/02/17 08/03/18 08/03/18 History [Valsartan-Hctz 320-12.5 mg Tab] Vitamin B Complex [Super B-50 50,000 unit PO QWEEK 03/02/17 08/03/18 08/26/17 History Complex] Zetia 10 mg PO DAILY 06/02/18 08/03/18 08/01/18 History Krill Oil 350 mg Softgel 1 tab PO DAILY 08/03/18 08/03/18 07/29/18 History Active Medications Sodium Chloride (Nacl 0.9% 1000 Ml) 1,000 mls @ 50 mls/hr IV DIRECT OLY Last Admin: 08/03/18 07:40 Dose: 50 mls/hr Documented by: - Brief post op/procedure progress note Date of procedure: 08/03/18 Pre-op diagnosis: 1. LLQ abdominal pain Post-op diagnosis: same (1. internal hemorrhoids) Procedure: Colonoscopy Anesthesia: MAC Findings: as above Surgeon: CARINA SALMON Estimated blood loss: none Pathology: none Condition: stable - Disposition Condition at discharge: Stable Disposition: DC-01 TO HOME OR SELFCARE Short Stay Discharge Plan Activity: no restrictions Weight Bearing Status: Full Weight Bearing Diet: regular Follow up with: BALDEV STODDARD MD [Primary Care Provider] - 7 Days
[2018-08-03 08:40] VITALS: BP 129/95
--- NOTE | 2018-08-03 08:53 | Anesthesia Day of Surgery ---
Anesthesia Day of Surgery - Day of Surgery Patient Examined: Yes Patient H&P Reviewed: Yes Patient is NPO: Yes Beta Blockers: No
--- NOTE | 2018-08-03 08:53 | Anesthesia Consultation ---
Anesthesia Consult and Med Hx Date of service: 08/03/18 - Airway Anesthetic Teeth Evaluation: Good ROM Head & Neck: Adequate Mental/Hyoid Distance: Adequate Mallampati Class: Class I Intubation Access Assessment: Good - Pulmonary Exam CTA: Yes - Cardiac Exam Cardiac Exam: RRR - Pre-Operative Health Status ASA Pre-Surgery Classification: ASA2 - Pulmonary Hx Smoking: No Hx Asthma: No Hx Sleep Apnea: No - Cardiovascular System Hx Hypertension: Yes Hx Heart Murmur: Yes - Central Nervous System Hx Psychiatric Problems: No - Other Systems Hx Alcohol Use: Yes (occas) Hx Cancer: No Hx Obesity: Yes
== END 2018-08-03 06:16 | disposition home or self-care (01) ==
LOC: GIO 06:15
PROVIDERS: ATTEND Internal Medicine Gastroenterology
DX: K64.0 First degree hemorrhoids (principal); R10.32 Left lower quadrant pain; I10 Essential (primary) hypertension; E66.9 Obesity, unspecified; E78.00 Pure hypercholesterolemia, unspecified; Z79.899 Other long term (current) drug therapy; Z88.8 Allergy status to other drugs, medicaments and biological substances; Z98.890 Other specified postprocedural states; Z72.89 Other problems related to lifestyle; Z68.30 Body mass index [BMI] 30.0-30.9, adult
CPT/HCPCS: 45378; 81025; J2250; J2704; J7030

== ENCOUNTER 2018-08-24 09:16 | Outpatient (CLI) | payer BC ==
[2018-08-24 10:52] LABS: Basophils % (Auto) 0.6 % (0.0-1.8); Eosinophils # (Auto) 0.1 K/mm3 (0.0-0.4); Hemoglobin 13.1 gm/dl (10.1-14.3); Lymphocytes # (Auto) 1.5 K/mm3 (1.2-5.4); Lymphocytes % (Auto) 35.7 % (13.4-35.0); Mean Corpuscular HGB Conc 33 % (30-34); Mean Corpuscular Volume 88 fl (79-97); Monocytes # (Auto) 0.4 K/mm3 (0.0-0.8); Monocytes % (Auto) 10.1 % (0.0-7.3); Platelet Count 278 K/mm3 (140-440); Red Blood Count 4.54 M/mm3 (3.65-5.03); Red Cell Distribution Width 13.6 % (13.2-15.2)
[2018-08-24 11:47] LABS: Alanine Aminotransferase 17 units/L (7-56); Albumin 4.4 g/dL (3.9-5); BUN/Creatinine Ratio 12; Blood Urea Nitrogen 11 mg/dL (7-17); Calcium 8.9 mg/dL (8.4-10.2); Hemolysis Index 2
== END 2018-08-24 09:17 | disposition home or self-care (01) ==
LOC: LAB 09:16
PROVIDERS: ATTEND Physician Assistant
DX: E22.1 Hyperprolactinemia (principal); E78.00 Pure hypercholesterolemia, unspecified; I10 Essential (primary) hypertension; E66.9 Obesity, unspecified; Z90.89 Acquired absence of other organs
CPT/HCPCS: 36415; 80053; 82533; 82670; 83001; 83036; 84146; 84305; 84402; 84436; 84443; 85025

== ENCOUNTER 2018-09-29 08:46 | Outpatient (CLI) | payer BC ==
[2018-09-29 10:40] LABS: Basophils % (Auto) 0.6 % (0.0-1.8); Eosinophils % (Auto) 0.8 % (0.0-4.3); Hematocrit 39.4 % (30.3-42.9); Hemoglobin 12.9 gm/dl (10.1-14.3); Lymphocytes # (Auto) 1.6 K/mm3 (1.2-5.4); Lymphocytes % (Auto) 35.7 % (13.4-35.0); Mean Corpuscular HGB Conc 33 % (30-34); Mean Corpuscular Volume 89 fl (79-97); Monocytes # (Auto) 0.4 K/mm3 (0.0-0.8); Monocytes % (Auto) 8.7 % (0.0-7.3); Platelet Count 274 K/mm3 (140-440); Red Blood Count 4.44 M/mm3 (3.65-5.03); Red Cell Distribution Width 13.5 % (13.2-15.2)
[2018-09-29 11:00] LABS: Alanine Aminotransferase 12 units/L (7-56); Albumin 4.2 g/dL (3.9-5); BUN/Creatinine Ratio 11; Blood Urea Nitrogen 9 mg/dL (7-17); Calcium 9.2 mg/dL (8.4-10.2); Hemolysis Index 5
== END 2018-09-29 08:47 | disposition home or self-care (01) ==
LOC: LAB 08:46
PROVIDERS: ATTEND Physician Assistant Medical
DX: Z01.818 Encounter for other preprocedural examination (principal); D25.9 Leiomyoma of uterus, unspecified; D35.2 Benign neoplasm of pituitary gland; I10 Essential (primary) hypertension; E78.2 Mixed hyperlipidemia; N83.8 Other noninflammatory disorders of ovary, fallopian tube and broad ligament; E78.00 Pure hypercholesterolemia, unspecified; E66.9 Obesity, unspecified; Z90.89 Acquired absence of other organs
CPT/HCPCS: 36415; 80053; 85025

== ENCOUNTER 2018-10-10 06:04 | Observation (INO) | payer BC ==
--- NOTE | 2018-10-05 09:48 | Anesthesia Consultation ---
Anesthesia Consult and Med Hx Date of service: 10/10/18 - Airway Anesthetic Teeth Evaluation: Good, Crowns ROM Head & Neck: Adequate Mental/Hyoid Distance: Adequate Mallampati Class: Class IV Intubation Access Assessment: Possibly Difficult - Pre-Operative Health Status ASA Pre-Surgery Classification: ASA2 Proposed Anesthetic Plan: General Nerve Block: TAP - Pulmonary Hx Smoking: No Hx Asthma: No Hx Sleep Apnea: No - Cardiovascular System Hx Hypertension: Yes (x 15 yrs) Hx Cardia Arrhythmia: Yes (1st degree AV block) - Central Nervous System Hx Psychiatric Problems: No - Gastrointestinal Hx Gastroesophageal Reflux Disease: Yes (Occasional; dietary) - Hematic Hx Anemia: Yes (Past hx) Hx Sickle Cell Disease: No - Other Systems Hx Alcohol Use: Yes (occas) Hx Cancer: No (Pituitary tumor since age 17; microadenoma; hyperprolactinemia) Hx Obesity: Yes - Additional Comments Anesthesia Medical History Comments: +Med clearance. 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
--- NOTE | 2018-10-09 12:53 | History and Physical Report ---
History of Present Illness Date of examination: 10/04/18 Chief complaint: Pelvic pain, ovarian cystic structure and fibroids History of present illness: This is a 43 years old female who presents with pelvic pain. She denies dysuria, dysmenorrhea, dyspareunia, vaginal itching, vaginal discharge, vaginal odor, painful bowel movements, constipation, diarrhea, nausea, vomiting, back pain and fever. Pain is located LLQ. She describes the pain as cramping. Episodes are intermittent. Her evaluation revealed (R) adnexal mass possible endometrioma and confirmed uterine fibroids. She desires to proceed with removal of uterus cervix and bilateral tubes and ovaries Past History : 3 Term Births: 2 Living Children: 2 Para: 2 Aborta: 1 Spont. Ab: 1 # 1 Delivery date: 06/10/2005 Weeks Gestation: 39 labor: no Delivery type: Anesthesia type: epidural Delivery location: [place] Sex: Female weight: 6-4 # 2 Delivery date: 2008 Delivery type: SAB Comments: no d&c # 3 Delivery date: 03/21/2011 Weeks Gestation: 37+2 Delivery type: Vaginal Anesthesia type: epidural Delivery location: [facility] Infant Sex: male weight: 4.56 Comments: CHTN, abnml screening [employer] History Uterine Surgery (not C/S): negative Operations: positive, tonsillectomy, inguinal hernia repair (R) Endometrial Ablation: (03/08/2017) Hysteroscopy: (03/08/2017) with polypectomy Anesthesia Complications: negative Abnormal PAP: negative Uterine Anomaly: negative [place] Exposure: negative Infertility: negative Infection History HIV Risk Eval: no TB exposure: yes Personal hx. of genital herpes: no Partner hx. of genital herpes: no Hx of STD: None Active Medications (reviewed today): ZETIA () AMLODIPINE/ATORVASTIN () BENICAR HCT 40-12.5 MG ORAL TABLET (OLMESARTAN MEDOXOMIL-HCTZ) VITAMIN D 1000 UNIT ORAL TABLET (CHOLECALCIFEROL) Current Allergies (reviewed today): * DOSTINEX (Critical) * SARDINES (Critical) Past Medical History: Reviewed history from 02/10/2018 and no changes required: hyperprolactinemia Dr. Johnson Hyperlipidemia Hypertension Insulin resistance Past Surgical History: Reviewed history from 03/08/2017 and no changes required: positive, tonsillectomy, inguinal hernia repair (R) Endometrial Ablation: (03/08/2017) Hysteroscopy: (03/08/2017) with polypectomy Family History Summary: Reviewed history Last on 02/10/2018 and no changes required:10/09/2018 Other family member - Has No Family History of Biliary Tract Cancer - Entered On: 03/07/2017 Other family member - Has No Family History of Brain Cancer - Entered On: 03/07/2017 Other family member - Has No Family History of Colon Cancer - Entered On: 03/07/2017 Other family member - Has No Family History of DVT/PE on OCP - Entered On: 03/07/2017 Other family member - Has No Family History of Kidney/Urinary Tract Cancer - Entered On: 03/07/2017 Other family member - Has No Family History of Pancreatic Cancer - Entered On: 03/07/2017 Other family member - Has No Family History of Stomach Cancer - Entered On: 03/07/2017 Other family member - Has No Family History of Small Bowel Cancer - Entered On: 03/07/2017 Other family member - Has No Family History of Uterine Cancer - Entered On: 03/07/2017 Aunt - Has Family History Breast Cancer - Entered On: 03/07/2017 Aunt - Has Family History of Ovarian Cancer - paternal, menopause - Entered On: 02/10/2018 General Comments - FH: No Family History of Colon Cancer No Family History of Ovarian Cancer No Family History of DVT/PE on OCP Family History Breast Cancer Paternal aunt Menopause Social History: Reviewed history from 06/21/2016 and no changes required: Patient is Smoking History: Patient has never smoked. Risk Factors: Smoked Tobacco Use: Never smoker Drug use: no HIV high-risk behavior: no Alcohol use: no Exercise: yes Seatbelt use: 100 % Mammogram History: Date of Last Mammogram: 10/04/2018 Results: 12/2017 PAP Smear History: Date of Last PAP Smear: 02/13/2018 NILM negative HPV Previous Tobacco Use: Signed On 06/21/2016 Smoked Tobacco Use: Never smoker Counseled to quit/cut down: yes Drug use: no Previous Alcohol Use: Signed On 06/21/2016 Alcohol use: no Exercise: yes Times per week: 3 Seatbelt use: 100 % Dietary Counseling: pn yes Mammogram History: Date of Last Mammogram: 10/04/2018 Results: 12/2017 Negative PAP Smear History: Date of Last PAP Smear: 02/13/2018 Review of Systems General Denies fever, chills, sweats, anorexia, fatigue, weakness, malaise, weight loss and sleep disorder. Denies vaginal discharge, incontinence, dysuria, hematuria, urinary frequency, amenorrhea, menorrhagia, abnormal vaginal bleeding, pelvic pain, genital sores, decreased libido, painful periods, painful sex, urinary urgency, hot flashes, vaginal dryness, vaginal itching and vaginal odor. CV Denies chest pains, palpitations, syncope, dyspnea on exertion, orthopnea, PND and peripheral edema. GI Denies nausea, vomiting, diarrhea, constipation, change in bowel habits, abdominal pain, melena, hematochezia, jaundice, gas/bloating, indigestion/heartburn, dysphagia and odynophagia. Endo Denies cold intolerance, heat intolerance, polydipsia, polyphagia, polyuria and unusual weight change. MS Denies back pain, joint pain, joint swelling, muscle cramps, muscle weakness, stiffness, arthritis, sciatica, restless legs, leg pain at night and leg pain with exertion. Neuro Denies paralysis, paresthesias, headache, seizures, tremors, vertigo, transient blindness, frequent falls, frequent headaches and difficulty walking. Psych Denies depression, anxiety, irritability and mood swings. Heme Denies abnormal bruising, bleeding and enlarged lymph nodes. Physical Exam Appearance: well developed, well nourished, no acute distress Other Exams Heart: regular rate and rhythm Lungs: no rales, rhonchi, or wheezes Abdomen: soft, non-tender, no masses, Extremities: no edema Genitourinary Exam Vagina: No lesions, normal BUS, normal rugae Cervix: normal appearance, no lesions Uterus: normal position, midline, mobile Adnexa: fullness LLQ PHYSICAL EXAM Abdomen: soft, non-tender, no masses, Extremities: no edema [employer] Exams Vulva/Vagina: No lesions, normal BUS, normal rugae Cervix: normal appearance, no lesions Uterus: normal position, midline, mobile Adnexae: fullness LLQ Impression & Recommendations: Problem # 1: Left lower quadrant pain (ICD-789.04) (FNA40-M73.32) Diagnosis explained to patient . Discussed with patient various medical, surgical and radiological therapies common for treatment including, but not limited to, myomectomy, hysterectomy and bilateral removal of tubes and ovaries. Discussed risks and benefits of laparotomy, laparoscopy, vaginal and robotic assisted approaches for hysterectomies. Patient desires definitive treatment in the form of robot assisted laparoscopic total hysterectomy. The risks and alternatives for this surgery were reviewed with the patient. She was informed of the risks of the surgery including, but not limited to persistent pain, infection, bleeding possibly heavy enough to require a blood transfusion with associated risks of infections (hepatitis and HIV) and transfusion reactions, possible damage to bowel, bladder or ureter(s). Patient understands that this surgery with make her sterile. Indications to abort a robotic/laparoscopic procedure and perform an open procedure were explained. P kolby understands if her ovaries are removed she will become menopausal which may increase her risks hr morbidity and cancer risks. Questions answered. Consent reviewed and signed. The patient was instructed/informed the following: The normal length of hospital stay for this procedure. Nothing to eat or drink after midnight the evening prior to surgery. Clear liquids the day before surgery. Fleets enema the evening prior to surgery Pre-op instruction sheets given. Wound care instructions given. Problem # 2: Fibroids of uterus; Intramural (ICD-218.1) ([id number]) Diagnosis explained to patient . Questions answered. Discussed with patient various medical, surgical and radioloigal therapies common for treatment: Hormonal/medical therapy, fibroid embolization, removal of fibroids or hysterectomy. She voiced understanidng and desires to proceed with hysterectomy with BSO Problem # 3: Ovarian cystic structure (ICD-625.8) (MHQ95-M97.89) Again discussed small chance of cancer however all labs and imaging revealed no evidence of malignancy. Medications and Allergies Allergies Allergy/AdvReac Type Severity Reaction Status Date / Time cabergoline [From Dostinex] Allergy Severe Hives Verified 10/03/18 13:25 hyoscyamine Allergy Palpatation Verified 10/05/18 10:32 s Pfaepsy-Epv-Kcz Reductase AdvReac joint pain Verified 10/03/18 13:25 Inhibitor POWDER IN GLOVES Allergy Rash Uncoded 03/08/17 06:48 sardines Allergy Hives Uncoded 03/08/17 06:39 Home Medications Medication Instructions Recorded Confirmed Last Taken Type Zetia 10 mg PO DAILY 04/0510/03/18 08/01/18 History Ergocalciferol(Vitamin D2)(Nf) 60,000 unit PO QWEEK 10/03/18 10/03/18 Unknown History [Vitamin D (Nf)] Olmesartan/Hydrochlorothiazide 1 tab PO QDAY 10/05/18 10/05/18 Unknown History [Benicar HCT 40-12.5 mg] Active Meds: Active Medications Ezetimibe (Zetia) 10 mg PO QDAY [facility] Hydrochlorothiazide (Hctz) 12.5 mg PO QDAY [facility] Cefazolin Sodium (Ancef/Sterile Water 2 Gm/20 Ml) 2 gm in 20 mls @ 80 mls/hr IV PREOP NR; Protocol Stop: 10/10/18 23:59 Losartan Potassium (Cozaar) 50 mg PO QDAY [facility] Exam Vital Signs Temp Pulse Resp BP Pulse Ox 99.3 F 69 18 137/75 100 10/05/18 09:20 10/05/18 09:20 10/05/18 09:20 10/05/18 09:20 10/05/18 09:20 Assessment and Plan - Patient Problems (1) Pelvic pain Status: Chronic (2) Fibroids, intramural Status: Chronic (3) Ovarian cyst Status: Acute
[~2018-10-10 06:04] MED LIST changes: +LACTATED RINGERS 1,000 ML IV SCH; +NEURONTIN PO NR; +SUBLIMAZE IV PRN; +VERSED IV NR
[2018-10-10] MEDS ORDERED: MARCAINE-EPI 0.5%-1:200,000 INFILTRATI ONE ×3 (06:47→11:45)
[2018-10-10] MEDS ORDERED: MARCAINE 0.5% INFILTRATI ONE (06:47)
[2018-10-10] MEDS ORDERED: XYLOCAINE 1% 20 mL ONE ×2 (06:47→07:19)
[2018-10-10] MEDS ORDERED: METHYLENE BLUE ONE (06:48)
[2018-10-10] MEDS ORDERED: NEOSPORIN GU IR ONE ×2 (06:48→09:04)
[2018-10-10] MEDS ORDERED: MARCAINE-EPI 0.25%-1:200,000 INFILTRATI ONE (07:19)
[2018-10-10] MEDS ORDERED: DECADRON ONE ×2 (07:19→11:20)
[2018-10-10] MEDS ORDERED: SUBLIMAZE ONE (07:26)
[2018-10-10] MEDS ORDERED: DIPRIVAN 10 MG/ML IV ONE (07:26)
[2018-10-10] MEDS ORDERED: VERSED ONE (07:26)
[2018-10-10] MEDS ORDERED: XYLOCAINE MPF 2% ONE (07:27)
[2018-10-10] MEDS ORDERED: ZEMURON IV ONE (07:28)
[2018-10-10 07:46] LABS: BUN/Creatinine Ratio 9; Blood Urea Nitrogen 7 mg/dL (7-17); Calcium 9.1 mg/dL (8.4-10.2); Hemolysis Index 12
[2018-10-10] MEDS ORDERED: PHENYLEPHRINE/NS Syringe 1,000 MCG/10 ML IV ONE (08:06)
[2018-10-10] MEDS ORDERED: LACTATED RINGERS 1,000 ML ONE ×2 (08:42→18:31)
[2018-10-10] MEDS ORDERED: NACL 0.9% IR ONE ×2 (09:05)
[2018-10-10] MEDS ORDERED: HCTZ PO SCH (10:00)
[2018-10-10] MEDS ORDERED: COZAAR PO SCH (10:00)
[2018-10-10] MEDS ORDERED: ZETIA PO SCH (10:00)
[2018-10-10] MEDS ORDERED: OLMESARTAN PO SCH (10:00)
[2018-10-10] MEDS ORDERED: HYDROCHLOROTHIAZIDE PO SCH (10:00)
[2018-10-10] MEDS ORDERED: ZETIA 10 MG PO SCH (10:00)
--- NOTE | 2018-10-10 11:05 | Post Operative Note ---
Pre-op diagnosis: pelvic mass, pelvis pain, fibroids Post-op diagnosis: other (endometrioma, endometriosis) Procedure: RALTH with BSO, probable 1cm residual (R) ovarian tissue present Anesthesia: ARIA Surgeon: DAGMAR FISH Dials Supervisor: SPENCER MARIE Estimated blood loss: 50-100ml Pathology: list (uterus, cervix, (B)Tubes and ovaries) Specimen disposition: to lab Condition: stable Disposition: PACU
[2018-10-10] MEDS ORDERED: ZOFRAN ONE (11:20)
[2018-10-10] MEDS ORDERED: METHYLENE BLUE IV ONE (11:30)
[2018-10-10] MEDS ORDERED: BLOXIVERZ ONE (11:36)
[2018-10-10] MEDS ORDERED: ROBINUL ONE (11:36)
--- NOTE | 2018-10-10 11:57 | Post Operative Note ---
Date of procedure: 10/10/18 (dictation: [id number]) Pre-op diagnosis: symptomatic umbo hernia Post-op diagnosis: same Findings: 2cm reducible hernia Procedure: Robotic assisted umbo hernia repair Anesthesia: LEORA Surgeon: ELIZABETH BEJARANO Behavioral Specialist: ELICEO ELIZABETH Estimated blood loss: none Pathology: none Condition: stable Disposition: no change (case turned over to Dr. Pulliam)
[2018-10-10] MEDS ORDERED: DILAUDID ONE ×2 (12:20→12:56)
[2018-10-10] MEDS ORDERED: DILAUDID IV PRN (12:54)
[2018-10-10] MEDS ORDERED: TORADOL ONE (13:32)
[2018-10-10] MEDS ORDERED: REGLAN IV PRN (14:10)
--- NOTE | 2018-10-10 14:24 | Operative Report ---
Operative Report Operative Report: Date: 10/10/2018 Preoperative diagnosis: 1. Pelvic pain 2. Uterine fibroids 3. Right ovarian cyst Postoperative diagnosis: 1. Pelvic pain 2. Uterine fibroids 3. Right ovarian endometrioma 4. Pelvic adhesions 5. Vaginal laceration 6. Endometriosis noted on the left proximal uterosacral ligament. Procedure: 1. Robot assisted laparoscopic total hysterectomy 2. Robotic-assisted laparoscopic bilateral salpingo-oophorectomy with approximately 1 cm residual of ovarian tissue. 3. Lysis of adhesions 4. Repair of vaginal laceration Surgeon: Sammi Pulliam MD Packing Floor Worker: Jacqueline Rizvi MD Anesthesiologist: Dr. Solomon Anesthesia: General endotracheal anesthesia EBL: Approximately 200 mL Findings: Exam under anesthesia revealed fullness in the right adnexa with nodules on the right posterior cul-de-sac. Uterus is sounded to 8 cm. Grossly normal bilateral fallopian tubes as well as left ovary. Right ovary was adhered to the pelvic sidewall and enlarged findings were consistent with right endometrioma of the ovary Procedure: Patient was taken to the OR and placed in the supine position. General anesthesia was induced and an oral gastric tube was placed. Her neck and head were placed on foam support. Foam eye protection with goggles were secured in place. Then foam face protection was placed and secured. Foam shoulder pads were then positioned on her shoulders for Trendelenburg positioning. She was then placed in dorsolithotomy position. Exam under anesthesia the above. The abdomen and vagina were then prepped and draped in the usual sterile fashion. Timeout was performed. A Garcia catheter was inse rted into the bladder with drainage of clear yellow urine. The operative speculum was introduced into the vagina and the anterior lip of the cervix was grasped with single-toothed tenaculum. The uterus was sounded to 8 cm. The cervix was progressively dilated to allow the large V care uterine manipulator. The bulb of the manipulator was inflated and the speculum and tenaculum were removed. The cup of the manipulator was placed around the cervix and the blue occluder of the manipulator was properly positioned in the vagina. A moist laparotomy sponge that was saturated with a solution of polymyxin and saline was placed in the vagina to ensure pneumoperitoneum. Sterile gloves were placed and attention was turned to the abdomen. A 10 mm vertical supraumbilical incision was made approximately 10 cm superior to the elevated fundus of the uterus. A 10 mm trocar with the laparoscope and camera attached was introduced through this incision under direct visualization. The abdomen was insufflated. No obvious bowel, bladder, ureteral, or major vascular injury was noted. The patient was then placed in steep Trendelenburg position and the following trochars were placed under direct visualization: 8 mm robotic trochars were placed through incisions made in the bilateral midclavicular lower abdominal region approximately 10 cm lateral and approximately 2 cm below the midline incision, and a 5 mm trocar was placed through an incision made in the right lower lateral pelvis approximately 2 cm superior to the iliac crest. The 10 mm laparoscope was then replaced by a 5 mm laparoscope that was placed through the 5 millimeter lateral trocar. The 12 mm trocar was then removed in the Wilver Alfaro fascial closure device was placed through the incision and a 0 Vicryl was placed through the fascia. Once the suture was secured the 12 mm trocar was reintroduced. Once the trochars were in the appropriate positions, the the da Brandi robot system was engaged. The EndoShears and bipolar device was placed through the 8 mm trochars and positioned then attention was turned to the console. The uterus was elevated and bilateral salpingectomy was performed. Each tube was removed through the 5 mm trocar and sent to pathology in separate containers. Because of the enlarged right ovary decision was made to leave the right ovary intact however remove the uterus, cervix and left ovary together. The course of the ureters were noted. The left ovary was elevated. The left infundibulopelvic ligament was clamped cauterized and incised. The left broad ligament was clamped cauterized and incised down to the round ligament. Attention was then turned to the left adnexa. The right utero-ovarian ligament was clamped, cauterized and incised using 30 W of energy. Then the round ligaments were clamped, cauterized and incised bilaterally. The anterior leaf of the broad ligament was elevated and careful blunt and sharp dissection the bladder flap was created and dissected away from the lower uterine segment and cervix. The posterior leaf of the broad ligament was dissected away from the uterine vessels. The cup of the uterine manipulator was palpated both anteriorly and posteriorly. Course of the ureters was visualized and was confirmed to be away from the operative field. The uterine vessels were then clamped and cauterized bilaterally. Blanching of the uterus was then noted. Attention was again turned to the anterior lower uterine segment and the bladder was confirmed to be away from the operative field. Then attention was turned again to the posterior where the cup of the manipulator was palpated and a colpotomy was performed down to the cup. The incision was extended in the lateral position the uterine vessels that were again clamped and cauterized and incised. Continuing along the cup of the manipulator in a circumferential manner the colpotomy was completed. The uterus and cervix were then removed through the vaginal incision. The pelvis was irrigated with warm normal saline. A moist laparotomy sponge was placed in the vagina to maintain pneumoperitoneum. Attention was then turned to the right ovary. With careful dissection the ovary was released from the pelvic sidewall. Care was taken to ensure that the ureter was always visualized in the dissection. The right infundibular pelvic ligament was clamped cauterized and incised. During the dissection of the ovary the cyst was inadvertently ruptured with spillage of fluid consistent with an endometrioma. The most posterior aspect of the ovary was densely adhered to the peritoneum that was attached to the ureter. Due to concern for ureteral integrity decision was made to remove as much of the right ovary is possible with injuring the ureter. At the end of this dissection there appeared to be approximately 1 cm aspect of normal ovary attached to the peritoneum that was adhered to the ureter. Methylene blue was given IV. The course of the right ureter was noted. The ureter appeared to be peristaltic and no obvious injury was noted no leaking of methylene blue was noted either. The ovary was removed through the vaginal incision. The vagina cuff was reapproximated using V LOC 180 suture in a simple running stitch. Then a J stitch was performed to secure the suture. Again the pelvis was copiously irrigated with polymixin in warm normal saline. The laparotomy sponge was removed from the vagina. No bowel, bladder, ureteral or major vascular injury was noted. Once hemostasis was noted, Ange was applied to the operative field to ensure hemostasis. Again hemostasis was noted. Again the pelvis was inspected and the ureter on the right as well as left appeared to be intact without any injury. She was noted to have bleeding from a small area on the right aspect of the vaginal cuff as well as laceration that was noted on the left anterior aspect of the vagina. Both areas were made hemostatic with a 3-0 Vicryl in a [id number] fashion. At this point Dr. Shah and Dr. Diane proceeded to repair the umbilical hernia. The incisions were reapproximated by Dr. Shah.
[2018-10-10] MEDS: MORPHINE IV PRN ×2 (14:41→19:55)
[2018-10-10] MEDS: TORADOL IV SCH ×2 (14:42→20:53)
--- NOTE | 2018-10-10 15:35 | Post Anesthesia Evaluation ---
- Post Anesthesia Evaluation Patient Participated: Yes Airway Patent: Yes Stable Respiratory Function: Yes Nausea/Vomiting: No Temp > 96.8F: Yes Pain Manageable: Yes Adequeate Hydration: Yes Anesthesia Complications: No
--- NOTE | 2018-10-10 15:35 | Anesthesia Day of Surgery ---
Anesthesia Day of Surgery - Day of Surgery Patient Examined: Yes Patient H&P Reviewed: Yes Patient is NPO: Yes
--- NOTE | 2018-10-10 16:20 | Operative Report ---
PREOPERATIVE DIAGNOSIS: Symptomatic umbilical hernia. POSTOPERATIVE DIAGNOSIS: Symptomatic umbilical hernia. PROCEDURE: Robotic-assisted laparoscopic umbilical hernia repair with mesh. ATTENDING PHYSICIAN: Tiffanie Shah M.D. MORTGAGE ACCOUNTING CLERK: Dr. Diane. ANESTHESIA: General. ESTIMATED BLOOD LOSS: Minimal blood loss. FINDINGS: Approximately 2 cm fascial defect at the umbilicus. Hernia was reducible. IMPLANTS: A Phasix ST mesh 7 x 10 cm. DRAINS: None. COMPLICATIONS: None. DISPOSITION: Stable turned over to Dr. Pulliam. INDICATIONS: This is a 43-year-old female who has a symptomatic umbilical hernia. The patient was assessed to be in need for repair. The patient was already assessed to be in need for hysterectomy; therefore, Dr. Pulliam and I coordinated a surgery date to take care of both issues at the same time. We plan to do a robotic-assisted umbilical hernia repair. Procedure, risks, benefits were explained to the patient. Risks included but were not limited to infection, bleeding, pain, injury to surrounding structures, possible recurrence, possible need for further surgery in the future. The patient understood and consented. DESCRIPTION OF PROCEDURE: Dr. Pulliam began the case. Please see her notes for complete details. When she was done with her portion of the case, she then turned the console over to me. I used the same ports that she setup and I assessed the field. It appears though, even though the ports were not in perfect position for our portion of the case, they were still acceptable. I was unable to do a preperitoneal repair due to the port locations. However, we were able to close the fascial defect and do an IPOM repair. As the hysterectomy involved opening up the vaginal cuff, I felt that her risk for infection and seeding of the mesh were higher, therefore, we used a biologic degradable mesh to minimize that risk of infection. I began with a 0 V-Loc stitch and I closed the fascial defect. We then placed the Phasix ST mesh. It was oriented with the longer portion going cephalad caudad direction. We had placed a Vicryl stitch in the center and used that to pull the mesh up through the fascial defect and while that was held in place, I then secured the mesh to the anterior abdominal wall with a 2-0 V-Loc suture. I had some difficulty due to the poor port position of getting to the periphery on the superior end; therefore, I ended up after we were done with the robotic portion using the absorbable tacks to secure the superior portion. I did place a few inferiorly as well just to make sure there were no exposed edges. The mesh appeared to lay very well. We had no complications during our portion of the case. We did look at the pelvis per Dr. Pulliam's request at the time that she finished her case and at the end of our case and there was no evidence of any bleeding in the pelvis. We desufflated the abdomen after we had removed all the needles, our needle count was correct. Dr. Pulliam had already placed a fascial stitch at the 12 mm port site. We used that to close the fascia. Hemostasis was achieved with electrocautery for small subcutaneous and muscle bleeders. Additional local was injected into the ports. Dr. Abarca, our anesthesiologist indicated we could use another 10 mL of 0.5% Marcaine, wanted to make sure that all the incisions were covered in case the TAP block did not extend high enough. 4-0 Monocryl subcuticular stitches were placed in all the wounds. Skin was cleaned and dried. Dermabond was placed. The patient tolerated the procedure well. There were no complications. We did note that there was some bleeding coming from the vagina. This was felt to be most likely bleeding from the cervix from where the tenaculum had been placed. Therefore, Dr. Pulliam came back and address that. Case was turned over to her. Please see her note for details on this issue. JOB# [id number] HAILEE/MILIND WILLOUGHBY
[2018-10-10] MEDS: TYLENOL PO SCH ×2 (17:30→23:48)
[2018-10-10] MEDS: ANCEF/NS 1 GM/50 ML 1 GM/50 ML BAG IV SCH (17:50)
--- NOTE | 2018-10-10 20:04 | Progress Note ---
Assessment and Plan Operative findings and procedures explained, she was specifically informed of endometriosis and d/t concerns for ureteral injury with further resection, small residual ovarian tissue was left intact however without it's usual blood supply. Also she aware of vaginal laceration that occurred when the uterus/cervix was removed and repair explained. Pain management strategy discussed. Questions were encouraged and answered, she voiced understanding and agrees with plan of care - Patient Problems (1) History of robot-assisted laparoscopic hysterectomy Current Visit: Yes Status: Acute (2) S/P bilateral salpingo-oophorectomy Current Visit: Yes Status: Acute (3) S/P umbilical hernia repair, follow-up exam Current Visit: Yes Status: Acute (4) Vaginal laceration Current Visit: Yes Status: Acute Qualifiers: Vaginal laceration type: non-obstetric Perineal laceration presence: without perineal laceration Encounter type: initial encounter Foreign body presence: without foreign body Qualified Code(s): S31.41XA - Laceration without foreign body of vagina and vulva, initial encounter (5) Endometriosis Current Visit: Yes Status: Chronic (6) Pelvic pain Current Visit: No Status: Chronic (7) Fibroids, intramural Current Visit: No Status: Resolved (8) Ovarian cyst Current Visit: No Status: Resolved Qualifiers: Laterality: right Qualified Code(s): N83.201 - Unspecified ovarian cyst, right side Subjective - Subjective Date of service: 10/10/18 Principal diagnosis: DOS: RALTH, umb hernia repair, BSO Interval history: This is a 43 years old female who presents with pelvic pain. She denies dysuria, dysmenorrhea, dyspareunia, vaginal itching, vaginal discharge, vaginal odor, painful bowel movements, constipation, diarrhea, nausea, vomiting, back pain and fever. Pain is located LLQ. She describes the pain as cramping. Episodes are intermittent. Her evaluation revealed (R) adnexal mass possible endometrioma and confirmed uterine fibroids. She desires to proceed with removal of uterus cervix and bilateral tubes and ovaries Past History : 3 Term Births: 2 Living Children: 2 Para: 2 Aborta: 1 Spont. Ab: 1 # 1 Delivery date: 06/10/2005 Weeks Gestation: 39 labor: no Delivery type: Anesthesia type: epidural Delivery location: [facility] Sex: Female weight: 6-4 # 2 Delivery date: 2008 Delivery type: SAB Comments: no d&c # 3 Delivery date: 03/21/2011 Weeks Gestation: 37+2 Delivery type: Vaginal Anesthesia type: epidural Delivery location: [facility] Infant Sex: male weight: 4.56 Comments: CHTN, abnml screening OUTREACH ASSOCIATE History Uterine Surgery (not C/S): negative Operations: positive, tonsillectomy, inguinal hernia repair (R) Endometrial Ablation: (03/08/2017) Hysteroscopy: (03/08/2017) with polypectomy Anesthesia Complications: negative Abnormal PAP: negative Uterine Anomaly: negative [place] Exposure: negative Infertility: negative Infection History HIV Risk Eval: no TB exposure: yes Personal hx. of genital herpes: no Partner hx. of genital herpes: no Hx of STD: None Active Medications (reviewed today): ZETIA () AMLODIPINE/ATORVASTIN () BENICAR HCT 40-12.5 MG ORAL TABLET (OLMESARTAN MEDOXOMIL-HCTZ) VITAMIN D 1000 UNIT ORAL TABLET (CHOLECALCIFEROL) Current Allergies (reviewed today): * DOSTINEX (Critical) * SARDINES (Critical) Past Medical History: Reviewed history from 02/10/2018 and no changes required: hyperprolactinemia Dr. Johnson Hyperlipidemia Hypertension Insulin resistance Past Surgical History: Reviewed history from 03/08/2017 and no changes required: positive, tonsillectomy, inguinal hernia repair (R) Endometrial Ablation: (03/08/2017) Hysteroscopy: (03/08/2017) with polypectomy Family History Summary: Reviewed history Last on 02/10/2018 and no changes required:10/09/2018 Other family member - Has No Family History of Biliary Tract Cancer - Entered On: 03/07/2017 Other family member - Has No Family History of Brain Cancer - Entered On: 03/07/2017 Other family member - Has No Family History of Colon Cancer - Entered On: 03/07/2017 Other family member - Has No Family History of DVT/PE on OCP - Entered On: 03/07/2017 Other family member - Has No Family History of Kidney/Urinary Tract Cancer - Entered On: 03/07/2017 Other family member - Has No Family History of Pancreatic Cancer - Entered On: 03/07/2017 Other family member - Has No Family History of Stomach Cancer - Entered On: 03/07/2017 Other family member - Has No Family History of Small Bowel Cancer - Entered On: 03/07/2017 Other family member - Has No Family History of Uterine Cancer - Entered On: 03/07/2017 Aunt - Has Family History Breast Cancer - Entered On: 03/07/2017 Aunt - Has Family History of Ovarian Cancer - paternal, menopause - Entered On: 02/10/2018 General Comments - FH: No Family History of Colon Cancer No Family History of Ovarian Cancer No Family History of DVT/PE on OCP Family History Breast Cancer Paternal aunt Menopause Social History: Reviewed history from 06/21/2016 and no changes required: Patient is Smoking History: Patient has never smoked. Risk Factors: Smoked Tobacco Use: Never smoker Drug use: no HIV high-risk behavior: no Alcohol use: no Exercise: yes Seatbelt use: 100 % Mammogram History: Date of Last Mammogram: 10/04/2018 Results: 12/2017 PAP Smear History: Date of Last PAP Smear: 02/13/2018 NILM negative HPV Previous Tobacco Use: Signed On - 06/21/2016 Smoked Tobacco Use: Never smoker Counseled to quit/cut down: yes Drug use: no Previous Alcohol Use: Signed On - 06/21/2016 Alcohol use: no Exercise: yes Times per week: 3 Seatbelt use: 100 % Dietary Counseling: pn yes Mammogram History: Date of Last Mammogram: 10/04/2018 Results: 12/2017 Negative PAP Smear History: Date of Last PAP Smear: 02/13/2018 Review of Systems General Denies fever, chills, sweats, anorexia, fatigue, weakness, malaise, weight loss and sleep disorder. Denies vaginal discharge, incontinence, dysuria, hematuria, urinary frequency, amenorrhea, menorrhagia, abnormal vaginal bleeding, pelvic pain, genital sores, decreased libido, painful periods, painful sex, urinary urgency, hot flashes, vaginal dryness, vaginal itching and vaginal odor. CV Denies chest pains, palpitations, syncope, dyspnea on exertion, orthopnea, PND and peripheral edema. GI Denies nausea, vomiting, diarrhea, constipation, change in bowel habits, abdominal pain, melena, hematochezia, jaundice, gas/bloating, indigestion/heartburn, dysphagia and odynophagia. Endo Denies cold intolerance, heat intolerance, polydipsia, polyphagia, polyuria and unusual weight change. MS Denies back pain, joint pain, joint swelling, muscle cramps, muscle weakness, stiffness, arthritis, sciatica, restless legs, leg pain at night and leg pain with exertion. Neuro Denies paralysis, paresthesias, headache, seizures, tremors, vertigo, transient blindness, frequent falls, frequent headaches and difficulty walking. Psych Denies depression, anxiety, irritability and mood swings. Heme Denies abnormal bruising, bleeding and enlarged lymph nodes. Physical Exam Appearance: well developed, well nourished, no acute distress Other Exams Heart: regular rate and rhythm Lungs: no rales, rhonchi, or wheezes Abdomen: soft, non-tender, no masses, Extremities: no edema Genitourinary Exam Vagina: No lesions, normal BUS, normal rugae Cervix: normal appearance, no lesions Uterus: normal position, midline, mobile Adnexa: fullness LLQ PHYSICAL EXAM Abdomen: soft, non-tender, no masses, Extremities: no edema OUTREACH ASSOCIATE Exams Vulva/Vagina: No lesions, normal BUS, normal rugae Cervix: normal appearance, no lesions Uterus: normal position, midline, mobile Adnexae: fullness LLQ Impression & Recommendations: Problem # 1: Left lower quadrant pain (ICD-789.04) (JZM37-I68.32) Diagnosis explained to patient . Discussed with patient various medical, surgical and radiological therapies common for treatment including, but not limited to, myomectomy, hysterectomy and bilateral removal of tubes and ovaries. Discussed risks and benefits of laparotomy, laparoscopy, vaginal and robotic assisted approaches for hysterectomies. Patient desires definitive treatment in the form of robot assisted laparoscopic total hysterectomy. The risks and alternatives for this surgery were reviewed with the patient. She was informed of the risks of the surgery including, but not limited to persistent pain, infection, bleeding possibly heavy enough to require a blood transfusion with associated risks of infections (hepatitis and HIV) and transfusion reactions, possible damage to bowel, bladder or ureter(s). Patient understands that this surgery with make her sterile. Indications to abort a robotic/laparoscopic procedure and perform an open procedure were explained. Patient understands if her ovaries are removed she will become menopausal which may increase her risks hr morbidity and cancer risks. Questions answered. Consent reviewed and signed. The patient was instructed/informed the following: The normal length of hospital stay for this procedure. Nothing to eat or drink after midnight the evening prior to surgery. Clear liquids the day before surgery. Fleets enema the evening prior to surgery Pre-op instruction sheets given. Wound care instructions given. Problem # 2: Fibroids of uterus; Intramural (ICD-218.1) (HHU50-R22.1) Diagnosis explained to patient . Questions answered. Discussed with patient various medical, surgical and radioloigal therapies common for treatment: Hormonal/medical therapy, fibroid embolization, removal of fibroids or hysterectomy. She voiced understanidng and desires to proceed with hysterectomy with BSO Problem # 3: Ovarian cystic structure (ICD-625.8) (TIV39-S13.89) Again discussed small chance of cancer however all labs and imaging revealed no evidence of malignancy. Patient reports: other (ambulating well with assistance) Objective - Vital Signs Latest vital signs: Vital Signs Temp Pulse Resp BP BP Pulse Ox 10/10/18 16:25 97.3 F L 69 20 142/83 100 10/10/18 15:18 97.2 F L 63 18 149/87 100 10/10/18 14:10 97.2 F L 63 18 149/87 10 L 10/10/18 13:35 66 16 132/84 100 10/10/18 13:31 14 10/10/18 13:20 64 15 136/86 100 10/10/18 13:05 64 16 131/84 100 10/10/18 12:50 16 10/10/18 12:40 97.4 F L 68 16 118/75 100 10/10/18 12:25 68 14 114/72 100 10/10/18 12:20 72 16 103/64 100 10/10/18 12:15 74 13 94/60 100 10/10/18 12:10 97.2 F L 70 13 102/67 99 10/10/18 07:50 14 10/10/18 07:32 68 16 120/86 100 10/10/18 07:27 69 16 116/83 100 10/10/18 07:23 58 L 14 122/76 100 10/10/18 07:21 65 11 L 141/87 100 10/10/18 07:19 18 10/10/18 07:00 18 10/10/18 06:40 97.8 F 69 20 126/90 99 10/10/18 06:19 97.8 F 69 20 126/90 99 Intake and Output 10/10/18 10/10/18 10/10/18 06:59 14:59 22:59 Intake Total 100 400 390 Output Total 300 300 Balance 100 100 90 Intake: IV 100 400 Oral 390 Output: Urine 300 300 Indwelling Catheter 300 Other: Total, Intake Amount 390 Total, Output Amount 300 Voiding Method Toilet - Exam Breasts: Present: deferred Cardiovascular: Present: Regular rate Lungs: Present: Clear to auscultation, Normal air movement Abdomen: Present: soft, distention, normal bowel sounds. Absent: tenderness Extremities: Present: normal Incision: Present: normal, dry, intact - Labs Labs: Abnormal lab results 10/10/18 Range/Units 07:10 Potassium 3.5 L (3.6-5.0) mmol/L
[2018-10-11] MEDS: ANCEF/NS 1 GM/50 ML 1 GM/50 ML BAG IV SCH (01:23)
[2018-10-11] MEDS: MORPHINE IV PRN ×2 (01:23→06:10)
[2018-10-11] MEDS ORDERED: LACTATED RINGERS 1,000 ML ONE (01:24)
[2018-10-11] MEDS: TORADOL IV SCH ×2 (03:15→10:29)
[2018-10-11 05:34] LABS: Hematocrit 33.7 % (30.3-42.9); Hemoglobin 11.1 gm/dl (10.1-14.3)
[2018-10-11] MEDS: TYLENOL PO SCH (06:05)
--- NOTE | 2018-10-11 08:45 | Discharge Summary ---
Providers - Providers Date of Admission: 10/10/18 12:46 Date of discharge: 10/11/18 Attending physician: DGAMAR FISH Primary care physician: BALDEV STODDARD Hospitalization Reason for admission: RALTH/BSO umbilical hernia repair Condition: Good Procedures: RALTH/BSO umbilical hernia repair Hospital course: Normal Disposition: - TO HOME OR SELFCARE - Discharge Diagnoses (1) History of robot-assisted laparoscopic hysterectomy Status: Acute (2) S/P bilateral salpingo-oophorectomy Status: Acute (3) S/P umbilical hernia repair, follow-up exam Status: Acute (4) Vaginal laceration Status: Acute Qualifiers: Vaginal laceration type: non-obstetric Perineal laceration presence: without perineal laceration Encounter type: initial encounter Foreign body presence: without foreign body Qualified Code(s): S31.41XA - Laceration without foreign body of vagina and vulva, initial encounter (5) Endometriosis Status: Chronic (6) Pelvic pain Status: Chronic Core Measure Documentation - Palliative Care Palliative Care/ Comfort Measures: Not Applicable - Core Measures Any of the following diagnoses?: none Exam - Constitutional Vitals: Temp Pulse Resp BP Pulse Ox 98.4 F 71 19 119/75 100 10/11/18 04:05 10/11/18 04:05 10/11/18 04:05 10/11/18 04:05 10/10/18 16:25 General appearance: Present: no acute distress - Respiratory Respiratory effort: normal Respiratory: negative: CTA - Cardiovascular Rhythm: regular - Extremities Extremities: no ischemia, No edema - Abdominal General gastrointestinal: Present: soft, non-tender, non-distended, normal bowel sounds - Integumentary Integumentary: Present: clear, warm, dry (Incisions: C/D/I) - Musculoskeletal Musculoskeletal: strength equal bilaterally - Psychiatric Psychiatric: appropriate mood/affect, intact judgment & insight, memory intact, cooperative Plan Activity: other (No sex, No driving. Ambulate on your property ~1mile a day to prevent DVT/PE. Void every 1-2hours) Weight Bearing Status: Full Weight Bearing Diet: low fat, low cholesterol, low salt Wound: open to air, keep clean and dry Special Instructions: no heavy lifting (greater than 25lbs) Follow up with: BALDEV STODDARD MD [Primary Care Provider] - 7 Days DAGMAR FISH MD [Staff Physician] - (As scheduled) Prescriptions: Ibuprofen [Motrin 800 MG tab] 800 mg PO TID PRN #30 tablet PRN Reason: Pain oxyCODONE /ACETAMINOPHEN [Percocet 5/325 mg] 1 - 2 tab PO Q6HR PRN #20 tablet PRN Reason: Pain
--- NOTE | 2018-10-11 09:09 | Progress Note ---
Assessment and Plan - Patient Problems (1) S/P umbilical hernia repair, follow-up exam Current Visit: Yes Status: Acute Plan to address problem: Pt stable. Patient appears to be doing well. No concerns at this time. Okay for discharge from my perspective. Rec: 1) follow-up in one week 2) diet as tolerated 3) no heavy lifting or strenuous activity 4) may shower tomorrow. Dry the wounds His call with questions Subjective Date of service: 10/11/18 Patient Reports: Positive: no new complaints, other (having mild pain in the midline and pelvic area. She was walking yesterday. Had difficulty sleeping.). Negative: nausea, vomiting Objective Vital Signs - 12hr 10/11/18 10/11/18 00:00 04:05 Temperature 98.6 F 98.4 F Pulse Rate 77 71 Respiratory 19 19 Rate Blood Pressure 130/77 119/75 [Left] - General physical appearance no distress, no pain, other (looks well. smiling) - Eyes normal occular movement - Respiratory normal expansion, normal respiratory effort - Abdomen soft, not tender, not distended, not guarding, not rigid, surgical scars (C/D/I) - Labs 10/11/18 05:11 10/10/18 07:10
[2018-10-11] MEDS ORDERED: PERCOCET 5/325 ONE (10:26)
[2018-10-11] MEDS ORDERED: TORADOL ONE (10:28)
[2018-10-11 12:46] VITALS: BP 122/89
[2018-10-11] MEDS ORDERED: PERCOCET 5/325 PO PRN (13:27)
== END 2018-10-11 17:00 | disposition home or self-care (01) ==
LOC: OR 06:04 → OB 12:46
PROVIDERS: ADMIT Obstetrics & Gynecology; ATTEND Obstetrics & Gynecology
DX: N83.201 Unspecified ovarian cyst, right side (principal); N80.9 Endometriosis, unspecified; K42.9 Umbilical hernia without obstruction or gangrene
CPT/HCPCS: 36415; 49653; 58554; 64450; 80048; 81025; 85014; 85018; 86850; 86900; 86901; 88302; 88307; 96365; 96366; 96375; 96376; A4217; C1781; G0378; J0690; J1100; J1170; J1885; J2250; J2270; J2370; J2405; J2704; J2710; J3010; J7120; Q9968; S2900

== ENCOUNTER 2019-01-31 14:34 | Outpatient (CLI) | payer BC ==
--- NOTE | 2019-02-01 14:28 | Mammography Report ---
DIGITAL SCREENING MAMMOGRAM WITH CAD, 01/31/2019 INDICATION: Routine screening mammography. TECHNIQUE: Digital bilateral 2D mammography was obtained in the craniocaudal and mediolateral obliq ue projections. This examination was interpreted with the benefit of Computer-Aided Detection analysi s. COMPARISON: 01/02/2018 FINDINGS: Breast Density: The breasts are heterogeneously dense, which may obscure small masses. Left asymmetries on both views require additional imaging. No architectural distortion or suspicious calcifications of the left breast. There is no evidence of dominant mass, suspicious calcifications o r architectural distortion in the right breast. IMPRESSION: Left asymmetries requiring additional imaging. Recommend recall for left ML, rolled CC an d spot compression MLO and CC views and left breast ultrasound if needed. Follow up recommendation: Special View: Spot Category 0: Incomplete. Needs additional imaging evaluation and/or prior mammograms for comparison. A "normal" or negative report should not discourage follow up or biopsy of a clinically significant f inding. A written summary of these findings will be mailed to the patient. The patient will be entered into a mammography reporting system which will generate a reminder letter for the patient's next appointmen t at the appropriate interval. The [employer] recommends yearly mammograms starting at age 40 and continuing as l daryn as a woman is in good health. Breast MRI is recommended for women with an approximate 20-25% or greater lifetime risk of breast cancer, including women with a strong family history of breast or ova jacob cancer or who have been treated for Hodgkin's disease. Signer Name: Yung Hoang MD Signed: 02/01/2019 2:24 PM Workstation Name: [id number]
== END 2019-01-31 14:35 | disposition home or self-care (01) ==
LOC: MAMMO 14:34
PROVIDERS: ATTEND Family Medicine
DX: Z12.31 Encounter for screening mammogram for malignant neoplasm of breast (principal)
CPT/HCPCS: 77067

== ENCOUNTER 2019-02-15 09:06 | Outpatient (CLI) | payer BC ==
--- NOTE | 2019-02-15 16:17 | Ultrasound Report ---
LEFT DIGITAL DIAGNOSTIC MAMMOGRAM WITH CAD 02/15/2019 LEFT LIMITED BREAST ULTRASOUND INDICATION: Recall to evaluate mammographic asymmetry. ABN MAMMO TECHNIQUE: Digital left mammographic imaging was performed. This examination was interpreted with scarlet morgan benefit of Computer-Aided Detection (CAD) analysis. COMPARISON: 01/31/2019 FINDINGS: Breast Density: The breast is heterogeneously dense, which may obscure small masses. MAMMOGRAPHIC FINDINGS: An irregular lower outer asymmetry persists on lateral, rolled CC and spot com pression MLO and CC views. ULTRASOUND FINDINGS: Targeted ultrasound evaluation was performed of the area of interest. Ultrasou nd of the lower outer left breast performed and demonstrated a cluster of 4 benign cysts at 4:00 7 cm from the nipple which correlates with the mammographic density. The largest cyst measures 8 mm x 7 m m x 6 mm. IMPRESSION: A benign cluster of cysts at 4:00 7 cm from the nipple. Follow up recommendation: Routine yearly BI-RADS Category 2: Benign. A "normal" or negative report should not discourage follow up or biopsy of a clinically significant f inding. A written summary of these findings will be mailed to the patient. The patient will be entered into a mammography reporting system which will generate a reminder letter for the patient's next appointmen t at the appropriate interval. According to the [employer], yearly mammograms are recommended starting at age 40 and continuing as long as a woman is in good health. Breast MRI is recommended for women with an madhu roximately 20-25% or greater lifetime risk of breast cancer, including women with a strong family his tory of breast or ovarian cancer and women who have been treated for Hodgkin's disease. Signer Name: Yung Hoang MD Signed: 02/15/2019 4:13 PM Workstation Name: [id number]
== END 2019-02-15 09:07 | disposition home or self-care (01) ==
LOC: MAMMO 09:06
PROVIDERS: ATTEND Physician Assistant Medical
DX: N60.02 Solitary cyst of left breast (principal)

== ENCOUNTER 2019-12-05 06:39 | Outpatient (CLI) | payer BC ==
[2019-12-05 07:14] LABS: Basophils % (Auto) 0.5 % (0.0-1.8); Eosinophils # (Auto) 0.1 K/mm3 (0.0-0.4); Eosinophils % (Auto) 1.2 % (0.0-4.3); Hemoglobin 13.2 gm/dl (10.1-14.3); Lymphocytes # (Auto) 2.3 K/mm3 (1.2-5.4); Lymphocytes % (Auto) 48.2 % (13.4-35.0); Mean Corpuscular HGB Conc 35 % (30-34); Mean Corpuscular Volume 85 fl (79-97); Monocytes # (Auto) 0.5 K/mm3 (0.0-0.8); Monocytes % (Auto) 10.2 % (0.0-7.3); Platelet Count 278 K/mm3 (140-440); Red Blood Count 4.45 M/mm3 (3.65-5.03); Red Cell Distribution Width 13.7 % (13.2-15.2)
[2019-12-05 08:43] LABS: Alanine Aminotransferase 16 units/L (7-56); Albumin 4.2 g/dL (3.9-5); BUN/Creatinine Ratio 14; Blood Urea Nitrogen 13 mg/dL (7-17); Calcium 9.7 mg/dL (8.4-10.2); Chol/HDL Ratio 4.98 %; HDL Cholesterol 54 mg/dL (40-59); Hemolysis Index 6; LDL Cholesterol,Direct 199 mg/dL (50-130)
[2019-12-11 08:53] LABS: Vitamin D, 25-OH, D2 SEE SCANNED RESULT
== END 2019-12-05 06:40 | disposition home or self-care (01) ==
LOC: LAB 06:39
PROVIDERS: ATTEND Family Medicine
DX: I10 Essential (primary) hypertension (principal); E55.9 Vitamin D deficiency, unspecified; D50.8 Other iron deficiency anemias
CPT/HCPCS: 36415; 80053; 80061; 82306; 85025

== ENCOUNTER 2020-02-07 12:20 | Outpatient (CLI) | payer BC ==
--- NOTE | 2020-02-07 15:52 | Mammography Report ---
DIGITAL SCREENING MAMMOGRAM WITH TOMOSYNTHESIS WITH CAD, 02/07/2020 CLINICAL INFORMATION / INDICATION: Routine Screening Mammography. TECHNIQUE: Digital bilateral 2D and 3D mammography with tomosynthesis was obtained in the craniocaud al and mediolateral oblique projections. Computer-Aided Detection (CAD) analysis was used for interp retation of this study. COMPARISON: 02/15/2019, 01/31/2019, 01/02/2018 FINDINGS: Breast Density: There are scattered areas of fibroglandular density. No dominant mass, suspicious calcifications, or architectural distortion in either breast. IMPRESSION: No mammographic evidence of malignancy. Follow up recommendation: Routine yearly BI-RADS Category 1: Negative. A "normal" or negative report should not discourage follow up or biopsy of a clinically significant f inding. A written summary of these findings will be mailed to the patient. The patient will be entered into a mammography reporting system which will generate a reminder letter for the patient's next appointmen t at the appropriate interval. The [employer] recommends yearly mammograms starting at age 40 and continuing as l daryn as a woman is in good health. Breast MRI is recommended for women with an approximate 20-25% or greater lifetime risk of breast cancer, including women with a strong family history of breast or ova jacob cancer or who have been treated for Hodgkin's disease. Signer Name: Rolando Lopez MD Signed: 02/07/2020 3:48 PM Workstation Name: [id number]
== END 2020-02-07 12:21 | disposition home or self-care (01) ==
LOC: SPVWC 12:20
PROVIDERS: ATTEND Obstetrics & Gynecology
DX: Z12.31 Encounter for screening mammogram for malignant neoplasm of breast (principal)
CPT/HCPCS: 77063; 77067

== ENCOUNTER 2020-06-06 06:51 | Outpatient (CLI) | payer BC ==
[2020-06-06 07:11] LABS: Basophils % (Auto) 0.4 % (0.0-1.8); Hematocrit 37.9 % (30.3-42.9); Hemoglobin 12.8 gm/dl (10.1-14.3); Lymphocytes # (Auto) 2.1 K/mm3 (1.2-5.4); Lymphocytes % (Auto) 45.6 % (13.4-35.0); Mean Corpuscular HGB Conc 34 % (30-34); Mean Corpuscular Volume 85 fl (79-97); Monocytes # (Auto) 0.6 K/mm3 (0.0-0.8); Platelet Count 309 K/mm3 (140-440); Red Blood Count 4.46 M/mm3 (3.65-5.03); Red Cell Distribution Width 13.2 % (13.2-15.2)
[2020-06-06 07:33] LABS: Alanine Aminotransferase 22 units/L (7-56); Albumin 3.9 g/dL (3.9-5); BUN/Creatinine Ratio 13; Blood Urea Nitrogen 13 mg/dL (7-17); Calcium 9.5 mg/dL (8.4-10.2); HDL Cholesterol 52 mg/dL (40-59); Hemolysis Index 7; LDL Cholesterol,Direct 166 mg/dL (50-130)
== END 2020-06-06 06:52 | disposition home or self-care (01) ==
LOC: LAB 06:51
PROVIDERS: ATTEND Family Medicine
DX: I10 Essential (primary) hypertension (principal); D50.8 Other iron deficiency anemias; E78.2 Mixed hyperlipidemia
CPT/HCPCS: 36415; 80053; 80061; 85025

== ENCOUNTER 2020-12-31 06:40 | Outpatient (CLI) | payer BC ==
[2020-12-31 07:16] LABS: Basophils % (Auto) 0.7 % (0.0-1.8); Eosinophils # (Auto) 0.1 K/mm3 (0.0-0.4); Eosinophils % (Auto) 1.6 % (0.0-4.3); Hemoglobin 12.3 gm/dl (10.1-14.3); Lymphocytes # (Auto) 2.3 K/mm3 (1.2-5.4); Lymphocytes % (Auto) 43.6 % (13.4-35.0); Mean Corpuscular HGB Conc 32 % (30-34); Mean Corpuscular Volume 86 fl (79-97); Monocytes # (Auto) 0.5 K/mm3 (0.0-0.8); Monocytes % (Auto) 9.5 % (0.0-7.3); Platelet Count 359 K/mm3 (140-440); Red Blood Count 4.53 M/mm3 (3.65-5.03)
[2020-12-31 07:32] LABS: Alanine Aminotransferase 20 units/L (7-56); Albumin 4.3 g/dL (3.9-5); BUN/Creatinine Ratio 14; Blood Urea Nitrogen 14 mg/dL (7-17); Calcium 9.4 mg/dL (8.4-10.2); Chol/HDL Ratio 3.69 %; HDL Cholesterol 49 mg/dL (40-59); Hemolysis Index 19; LDL Cholesterol,Direct 112 mg/dL (50-130)
[2021-01-03 13:14] LABS: Vitamin D, 25-OH, D2 41 ng/mL
== END 2020-12-31 06:41 | disposition home or self-care (01) ==
LOC: LAB 06:40
PROVIDERS: ATTEND Family Medicine
DX: Z00.00 Encounter for general adult medical examination without abnormal findings (principal); Z11.59 Encounter for screening for other viral diseases; Z11.4 Encounter for screening for human immunodeficiency virus [HIV]; R63.5 Abnormal weight gain
CPT/HCPCS: 36415; 80053; 80061; 82306; 84443; 85025; 86689; 86803

== ENCOUNTER 2021-04-14 14:27 | Emergency (ER) | payer BC ==
[2021-04-14 15:51] VITALS: BP 140/103
== END 2021-04-14 16:13 | disposition home or self-care (01) ==
LOC: ED 14:27
DX: S63.502A Unspecified sprain of left wrist, initial encounter (principal); I10 Essential (primary) hypertension; X58.XXXA Exposure to other specified factors, initial encounter; Y93.89 Activity, other specified; Y92.89 Other specified places as the place of occurrence of the external cause; Y99.8 Other external cause status
CPT/HCPCS: 99283

== ENCOUNTER 2021-07-10 13:11 | Outpatient (CLI) | payer BC ==
[2021-07-10 13:42] LABS: Basophils # (Auto) 0.1 K/mm3 (0.0-0.1); Basophils % (Auto) 1.3 % (0.0-1.8); Eosinophils # (Auto) 0.1 K/mm3 (0.0-0.4); Eosinophils % (Auto) 1.1 % (0.0-4.3); Lymphocytes # (Auto) 1.9 K/mm3 (1.2-5.4); Lymphocytes % (Auto) 37.8 % (13.4-35.0); Mean Corpuscular HGB Conc 32 % (30-34); Mean Corpuscular Volume 85 fl (79-97); Monocytes # (Auto) 0.5 K/mm3 (0.0-0.8); Monocytes % (Auto) 9.2 % (0.0-7.3); Platelet Count 368 K/mm3 (140-440); Red Blood Count 4.45 M/mm3 (3.65-5.03)
[2021-07-10 14:05] LABS: Alanine Aminotransferase 22 units/L (7-56); Albumin 4.4 g/dL (3.9-5); BUN/Creatinine Ratio 14; Blood Urea Nitrogen 15 mg/dL (7-17); Calcium 9.6 mg/dL (8.4-10.2); Chol/HDL Ratio 4.35 %; HDL Cholesterol 53 mg/dL (40-59); Hemolysis Index 2; LDL Cholesterol,Direct 157 mg/dL (50-130)
== END 2021-07-10 13:12 | disposition home or self-care (01) ==
LOC: LAB 13:11
PROVIDERS: ATTEND Family Medicine
DX: I10 Essential (primary) hypertension (principal); E66.09 Other obesity due to excess calories; E55.9 Vitamin D deficiency, unspecified; E78.2 Mixed hyperlipidemia
CPT/HCPCS: 36415; 80053; 80061; 82306; 83036; 84443; 85025

== ENCOUNTER 2021-07-15 09:54 | Outpatient (CLI) | payer BC ==
[2021-07-15 14:08] LABS: Basophils % (Auto) 0.9 % (0.0-1.8); Eosinophils # (Auto) 0.1 K/mm3 (0.0-0.4); Eosinophils % (Auto) 1.4 % (0.0-4.3); Hematocrit 39.7 % (30.3-42.9); Hemoglobin 12.6 gm/dl (10.1-14.3); Lymphocytes # (Auto) 1.9 K/mm3 (1.2-5.4); Lymphocytes % (Auto) 37.9 % (13.4-35.0); Mean Corpuscular HGB Conc 32 % (30-34); Mean Corpuscular Volume 85 fl (79-97); Monocytes # (Auto) 0.4 K/mm3 (0.0-0.8); Monocytes % (Auto) 7.2 % (0.0-7.3); Platelet Count 379 K/mm3 (140-440); Red Blood Count 4.65 M/mm3 (3.65-5.03); Red Cell Distribution Width 14.1 % (13.2-15.2)
[2021-07-15 14:14] LABS: Alanine Aminotransferase 23 units/L (7-56); Albumin 4.5 g/dL (3.9-5); BUN/Creatinine Ratio 16; Blood Urea Nitrogen 16 mg/dL (7-17); Calcium 9.7 mg/dL (8.4-10.2); Hemolysis Index 14
[2021-07-15 14:29] LABS: Free T4 (Free Thyroxine) 0.94 ng/dL (0.76-1.46)
[2021-07-15 14:34] LABS: Erythrocyte Sedimentation Rate 13 mm/Hr (0-20)
== END 2021-07-15 09:55 | disposition home or self-care (01) ==
LOC: LAB 09:54
PROVIDERS: ATTEND Family Medicine
DX: I10 Essential (primary) hypertension (principal); L29.9 Pruritus, unspecified; E78.2 Mixed hyperlipidemia; E55.9 Vitamin D deficiency, unspecified; E66.09 Other obesity due to excess calories
CPT/HCPCS: 36415; 80053; 82785; 84439; 84443; 85025; 85652; 86160